=== PATIENT | male | born 1955 | race Caucasian/White ===

== ENCOUNTER → 2017-05-31 | Outpatient (CLI) | payer BC ==
[~2017-05-31] MED LIST: LISI40TA PO; NAPR1TAB9 PO; ZINC1CAP PO
[2017-05-31 13:06] LABS: BLOOD UREA NITROGEN 14 mg/dl (7-18); BUN/CREATININE RATIO 14.6 (10-20); CARBON DIOXIDE 26 mmol/L (21-32); CHLORIDE 105 mmol/L (98-107); CHOLESTEROL 197 mg/dl (0-200); CREATININE 0.95 mg/dl (0.60-1.40); GLUCOSE 113 mg/dl (70-99); POTASSIUM 3.9 mmol/L (3.5-5.1); SODIUM 140 mmol/L (136-145)
[2017-05-31 13:08] LABS: CHOLESTEROL/HDL RATIO 2.1; HDL CHOLESTEROL 95 mg/dl; LDL CHOLESTEROL CALCULATED 94 mg/dl; TRIGLYCERIDES 40 mg/dl (0-150); VERY LOW DENSITY LIPOPROT CALC 8 mg/dl
== END | disposition home or self-care (01) ==
LOC: C.LABPVFM 08:49
PROVIDERS: ATTEND Nurse Practitioner
DX: E78.5 Hyperlipidemia, unspecified (principal); I10 Essential (primary) hypertension

== ENCOUNTER 2022-06-25 16:22 | Inpatient (IN) ==
[2022-06-25] MEDS ORDERED: ACETAMINOPHEN 500 MG TAB PO STA (16:44)
[2022-06-25] MEDS ORDERED: SODIUM CHLORIDE 0.9% 1000ML 1,000 ML IV SCH (16:45)
[2022-06-25] MEDS ORDERED: ALBUT/IPRATROP 3MG/0.5MG NEB 3 ML VIAL NEB STA (16:55)
[2022-06-25] MEDS ORDERED: methylPREDNISolone 125 MG/2 ML VIAL IV STA (16:55)
[2022-06-25 17:00] LABS: Basophils # (auto) 0.06 K/uL (0-0.2); Basophils % (auto) 0.3 %; Eosinophils # (auto) 0.11 K/uL (0-0.50); Eosinophils % (auto) 0.5 %; Hematocrit (blood only) 42.7 % (40.1-51.0); Hemoglobin 14.7 g/dl (14.0-18.0); Immature Granulocytes # (auto) 0.11 K/uL (0.00-0.02); Immature Granulocytes % (auto) 0.5 %; Lymphocytes # (auto) 1.57 K/uL (1.2-3.4); Lymphocytes % (auto) 6.7 %; Mean Corpuscular Hemoglobin 30.2 pg (25.0-34.0); Mean Corpuscular Hgb Conc 34.4 g/dL (32.0-36.0); Mean Corpuscular Volume 87.7 fL (80.0-100.0); Mean Platelet Volume 9.3 fL (9.4-12.4); Monocytes # (auto) 2.45 K/uL (0.24-0.82); Monocytes % (auto) 10.5 %; Neutrophils # (auto) 19.09 K/uL (1.4-6.5); Neutrophils % (auto) 81.5 %; Platelet Count 369 K/uL (130-400); RDW Standard Deviation 44.6 fL (36.4-46.3); Red Blood Count 4.87 M/uL (4.63-6.08); White Blood Count 23.39 K/ul (4.8-10.8)
--- NOTE | 2022-06-25 17:18 | XRay Report ---
XR chest 1V portable HISTORY: 67 years-old Male SOB acute cough with shortness of breath COMPARISON: Chest radiograph 10/27/2013 TECHNIQUE: AP view of the chest FINDINGS: Cardiac silhouette is normal in size. Atherosclerosis of the aorta. Right greater left hilar prominen ce. No pneumothorax or large pleural effusion. Mild reticular nodular densities of the left midlung a nd right lung base. Degenerative changes of the shoulders and spine. IMPRESSION: 1. Mild reticular nodular opacities of the left midlung and right lung base are suspicious for an inf ectious or inflammatory pneumonitis. 2. Bilateral hilar prominence may represent associated lymphadenopathy. Attention at follow-up recomm ended. ACT 112: Negative or not required by law. The above report was generated using voice recognition software. It may contain grammatical, syntax o r spelling errors. Electronically signed by: Bryant Frazier M.D. 06/25/2022 5:16 PM
[2022-06-25 17:29] LABS: Albumin Globulin Ratio 1.1 (0.9-2); Albumin Level 3.9 gm/dl (3.4-5.0); BUN Creatinine Ratio 17.5 (10-20); Bilirubin Direct 0.2 mg/dl (0-0.2); Bilirubin,Total 0.5 mg/dl (0.2-1.0); Calcium 9.4 mg/dl (8.5-10.1); Creatinine Clr Calc Pharmacy 80.1 ml/min; Est GFR (African American) 91.9 ml/min; Est GFR (Non-African American) 79.3 ml/min; Globulin 3.5 gm/dl (2.5-4.0); Magnesium 2.1 mg/dl (1.7-2.4); Potassium 3.1 mmol/L (3.5-5.1); Total Protein 7.4 gm/dl (6.0-8.3)
[2022-06-25 17:34] LABS: Troponin I High Sensitivity 32.1 pg/ml (0-20)
[2022-06-25 17:48] LABS: Base Excess VBG 6.9 mEq/L; HCO3 VBG 32 mmol/L; Oxygen Saturation VBG < 60.0 %; PCO2 VBG 46 mmHg (38-50); PO2 VBG 33 mmHg; pH VBG 7.45 (7.36-7.41)
[2022-06-25 18:23] LABS: Partial Thromboplastin Ratio 0.9; Partial Thromboplastin Time 24.3 Seconds (21.0-31.0); Prothrombin Time 10.4 Seconds (9.0-12.0)
[2022-06-25 19:21] LABS: Influenza A virus by PCR Negative (Neg); Influenza B virus by PCR Negative (Neg); RSV by PCR Negative (Neg); SARS CoV2 RNA(COVID-19)Cepheid NEGATIVE (Negative)
[2022-06-25] MEDS ORDERED: cefTRIAXone SODIUM 1,000 MG/50 ML BAG IV STA ×2 (19:36→20:57)
[2022-06-25] MEDS ORDERED: AZITHROMYCIN 250 MG TAB PO ONE (19:36)
--- NOTE | 2022-06-25 19:56 | History & Physical Report ---
Date of Service June 25, 2022 Assessment & Plan (1) Hypertension: (2) Hyperlipidemia: (3) Tachycardia: (4) Sepsis: (5) Community acquired pneumonia: (6) Hypokalemia: (7) Elevated troponin: Plan Micha is a 67 year old male with history of hypertension, hyperlipidemia, and ta chycardia who presents for an acute illness and was admitted to the hospital for sepsis a/w pneumonia. Sepsis a/w Community Acquired Pneumonia - Symptoms started Saturday 06/23 a/w cough, rhinorrhea, and congestion - COVID, Flu, and RSV negative - SIRS 3/4 + Source (Pneumonia) = Sepsis - Blood culture pending - Received 1L bolus in ED, 1g Ceftriaxone, and 500 mg Azithromycin - Added additional 1g of Ceftriaxone in ED - MRSA nares pending - CRP 24.58 H, procalcitonin negative - Anaerobic coverage not indicated at present d/t low aspiration risk - Rx Ceftriaxone 2 g daily and Azithromycin 500 mg IV daily - Rx Duoneb q2h PRN and Solu-Medrol 40 mg IV q8h scheduled - Rx Mucinex 1200 mg BID - Consider CT chest if unfavorable response to antibiotics to evaluate for endobronchial lesion - Encouraged tobacco cessation, continue Elevated Troponin - HS Troponin 32.1 on presentation, trend - Repeat Troponin ordered - No active chest pain - EKG PRN for chest pain - Admitted to Med/tele Hypokalemia - K 3.1 on admission - Ordered 40 mEq PO at 2100, repeat at 2300 - Recheck CMP in AM Hypertension - Elevated on presentation w/o chest pain, headaches, or visual change - Continue home medications (Amlodipine, HCTZ, and Lisinopril) - Continue daily Aspirin 81 mg Hyperlipidemia - ASCVD Risk: 24.5%, recommending mod-high intensity statin - Patient not currently on statin therapy - Recommending consideration for discharge with statin FEN: NSS 1L bolus in ER, replete K 40 mEq PO now, 40 mEq PO before bed 06/25 Code status: Full Code DVT ppx: SCD Isolation: None Dispo:Admit to Med/Tele History of Present Illness Chief Complaint: Illness/Shortness of Breath Primary Care Provider: RAMA Martínez Micha is a 67 year old male with history of hypertension, hyperlipidemia, and tachycardia who presents for an acute illness and was admitted to the hospital for sepsis a/w pneumonia. ED Course: NS Bolus 1000 mL, Acetaminophen, Ceftriaxone 1 g, Azithromycin 500 mg Micha notes that on Saturday 06/23 he developed a cough, rhinorrhea, and shortness of breath. Patient notes that his cough was productive of green sputum since Saturday. At first, he believed he had a cold so he started taking Mucinex. Ultimately, he was unable to get ahead of his shortness of breath and his symptoms progressed over the weekend, to the point that his made him come into the ER today. Patient experienced associated body aches and chills, but did not note a fever at home. He states that his sinues became congested and he began having aching in his upper jaw and ears (which has since resolved). He denies any chest pain or pleuritic pain. Patient is not experiencing any abdominal pain, nausea, or emesis. He has had no bowel/bladder changes and has not experienced any lower extremity swelling. Patient notes no known history of lung disease (wheezing/COPD/asthma) and does not require oxygen or inhalers at baseline. He endorses smoking 1 PPD for 50 years. He has no dyspnea on a normal day. Patient denies any episodes of emesis or choking. He has had no difficulty swallowing and believes aspiration is low likelihood. Tachycardia was present at patient's last PCP appointment in April, labs ordered at this visit were unremarkable per patient (notably normal TSH in chart). Chronic conditions: Reviewed Medications: Reviewed Allergies: NKDA Allergies Allergy/AdvReac Type Severity Reaction Status Date / Time No Known Allergies Allergy Unverified 06/25/22 21:08 Home Medications Medication Instructions Recorded Confirmed Type aspirin 81 mg tablet,delayed 81 mg PO DAILY #30 tabs 04/22/19 06/25/22 Rx release naproxen sodium 220 mg capsule 220 mg PO BID #60 caps 04/22/19 06/25/22 Rx (Aleve) zinc sulfate 66 mg tablet 66 mg PO DAILY PRN Unknown 04/28/19 06/25/22 History amlodipine 10 mg tablet 10 mg PO DAILY #90 tabs 08/15/21 06/25/22 Rx hydrochlorothiazide 25 mg tablet 25 mg PO DAILY #90 tabs 08/15/21 06/25/22 Rx lisinopril 40 mg tablet 40 mg PO DAILY #90 tabs 08/15/21 06/25/22 Rx Past Med/Surg History Medical History Candidate for statin therapy due to risk of future cardiovascular event Hyperlipidemia Hypertension Surgical History No pertinent past surgical history Family History Sister Diabetes Grandfather Myocardial infarction Denies family history of Ovarian cancer Prostate cancer Breast cancer Colorectal cancer Stroke Social History Smoking Status: Heavy tobacco smoker Age Started Using Tobacco: 15; packs per day: 1; Cigarettes Per Day: Pack per day; Second Hand Exposure: No; Do You Dip or Chew Tobacco: Yes; Tobacco Cessation Education Requested by Patient: No Hx Alcohol Use: Yes Alcohol type: beer Alcohol Intake Frequency: 4 or More x per/Week Alcohol Intake Frequency Comment: daily Hx Substance Use: No Preferred Language: Portuguese Communication Ability: Effective Hearing Ability: Normal Registered Nurse Behavioral Health Required: No Beliefs That Will Affect Care: None marital status: Current Living Situation: Spouse Current Living Situation Comment: Home with current occupational status: retired current occupation: [employer] How many Children do You have: 2 Other Information That Helps Us Care for You: No Feels Safe at Home: Yes Safety Concerns: Feels Safe At This Time Childhood Exposure to Second-Hand Smoke: Yes caffeine: Yes (coffee) Dental Care, Regularly: Yes Physical Activity Frequency: Daily Seatbelt Use: sometimes Sunscreen Use: No Assistive Devices: None Review of Systems Review of Systems: As per HPI Physical Exam Physical Exam: Gen: Dyspnea w/ conversation, interactive, alert HEENT: Supple, no LAD, no thyromegaly, no JVD Resp:Labored, bilateral inspiratory and expiratory wheezing, rhonchi in left mid-lower lob and rhonchi in right lower lobe CV:RRR, normal S1/S2, no M/R/G Abd: Soft, non-distended, no TTP, normoactive bowels, no masses Extr: 2+ dp bilaterally, no edema Skin: No rashes lesions or erythema Oxygen saturation dropped to 70% upon transition from laying to sitting at 90 degrees, despite 3L O2 via NC Results & Data Results & Data ([facility]) Vital Signs (Past 12 Hours) Vital Signs Temp Pulse Resp BP Pulse Ox O2 Del Method O2 Flow Rate 06/25/22 16:44 28 H 93 Nasal Cannula 3 06/25/22 18:12 152/88 H 06/25/22 18:12 109 H 22 97 06/25/22 18:10 112 H 29 H 98 06/25/22 18:00 112 H 27 H 92 06/25/22 17:50 113 H 38 H 91 06/25/22 17:40 110 H 38 H 168/89 H 06/25/22 17:30 112 H 37 H 06/25/22 17:20 117 H 38 H 92 06/25/22 17:10 115 H 36 H 93 06/25/22 17:00 118 H 38 H 92 06/25/22 16:50 114 H 30 H 95 06/25/22 16:40 120 H 39 H 11/21/22 16:38 120 H 31 H 92 06/25/22 16:33 Room Air 06/25/22 16:33 85 L Nasal Cannula 0 06/25/22 16:33 37.6 C H 116 H 38 H 169/85 H 85 L Room Air Code Status & VTE Plan Code Status Full Code Supervising Physician Co-Signing Physician Notes Attending addendum: I have physically seen this patient, have supervised the medical residents activities, and agree with the H&P unless as otherwise noted. Assessment and Plan: Sepsis due to community-acquired pneumonia- Given Solu-Medrol 125 mg IV, ceftriaxone 1 g IV and azithromycin 5 mg p.o. in the ED Methylprednisolone 40 mg IV every 8 hours Ceftriaxone 2 g IV daily Azithromycin 500 mg IV daily Duonebs every 4 hours while awake and every 2 hours when necessary. MRSA nares ordered and pending Based on Infection location and history of tobacco use, if does not improve at sufficient interval, would order CT scan of the chest to assess for possible postobstructive process Elevated troponin- Telemetry admission Troponin mildly elevated at 32.1 Likely type II, supply demand mismatch Hypokalemia- potassium 3.1 on admission replace both orally and IV, and recheck laboratories in a.m. Likely secondary to HCTZ If does not normalize in a.m., would hold HCTZ Otherwise continue amlodipine, HCTZ and lisinopril Remaining orders and notations as noted Resident Activity Tracking Resident Involvement: Resident Care Provided Care Provided: Adult Hospital Medicine
[2022-06-25] MEDS ORDERED: POTASSIUM CHLORIDE CRTAB 20 MEQ TABCR PO STA (20:57)
[2022-06-25] MEDS ORDERED: ACETAMINOPHEN 325 MG TAB PO PRN (21:25)
[2022-06-25] MEDS ORDERED: ALBUT/IPRATROP 3MG/0.5MG NEB 3 ML VIAL NEB PRN (21:37)
--- NOTE | 2022-06-25 22:18 | Emergency Department Note ---
History of Present Illness General Chief Complaint: Illness Stated Complaint: Shortness of Breath Time Seen by Provider: 06/25/22 16:44 History of Present Illness Provider Complaint: shortness of breath and cough Onset (ago): day(s) (2) Severity: moderate Consistency/Duration: + progressively worsening Relieved By: + nothing Exacerbated By: + exertion and + coughing Known history of: COPD Associated symptoms: + fever, + cough, + wheezing, + sputum production and + chest congestion; no hemoptysis, no diaphoresis, no nausea/vomiting, no syncope, no abdominal pain or no rash Home Medications Medication Instructions Recorded Confirmed Type aspirin 81 mg tablet,delayed 81 mg PO DAILY #30 tabs 04/22/19 06/25/22 Rx release naproxen sodium 220 mg capsule 220 mg PO BID #60 caps 04/22/19 06/25/22 Rx (Aleve) zinc sulfate 66 mg tablet 66 mg PO DAILY PRN Unknown 04/28/19 06/25/22 History amlodipine 10 mg tablet 10 mg PO DAILY #90 tabs 08/15/21 06/25/22 Rx hydrochlorothiazide 25 mg tablet 25 mg PO DAILY #90 tabs 08/15/21 06/25/22 Rx lisinopril 40 mg tablet 40 mg PO DAILY #90 tabs 08/15/21 06/25/22 Rx Allergies Allergy/AdvReac Type Severity Reaction Status Date / Time No Known Allergies Allergy Unverified 06/25/22 21:08 Past Med/Surg History Medical History Candidate for statin therapy due to risk of future cardiovascular event Hyperlipidemia Hypertension Surgical History No pertinent past surgical history Family History Sister Diabetes Grandfather Myocardial infarction Denies family history of Ovarian cancer Prostate cancer Breast cancer Colorectal cancer Stroke Social History Smoking Status: Former smoker Age Started Using Tobacco: 15; packs per day: 1; Second Hand Exposure: No; Hx Alcohol Use: Yes Alcohol type: beer Alcohol Intake Frequency: 4 or More x per/Week Alcohol Intake Frequency Comment: daily Hx Substance Use: No Preferred Language: [place]an Communication Ability: Effective Hearing Ability: Normal Airline Managerial Supervisor Required: No marital status: Current Living Situation: Spouse 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 How many Children do You have: 2 Feels Safe at Home: Yes Childhood Exposure to Second-Hand Smoke: Yes caffeine: Yes (coffee) Dental Care, Regularly: Yes Physical Activity Frequency: Daily Seatbelt Use: sometimes Sunscreen Use: No Review of Systems A total of 10 systems reviewed and were otherwise negative Physical Exam Vital Signs: Vital Signs - 24 hr 06/25/22 16:33 06/25/22 16:33 06/25/22 16:33 Temperature 37.6 C H Temperature Source Oral Pulse Rate 116 H Pulse Rate from Sp O2 Sensor Respiratory Rate 38 H Respiratory Effort / Characteristics Blood Pressure 169/85 H Blood Pressure [place] n 113 Blood Pressure Pos ition Sitting Pulse Oximetry 85 L 85 L Oxygen Delivery Me thod Room Air Nasal Cannula Room Air Oxygen Flow Rate 0 Sepsis Recent Feve r Within 48 Hours No Sepsis New/Unexpla ined Change in Men ned Status No Sepsis Action Take n by Nursing Physician Notified Oxygen Flow Rate - Titration 2 Pulse Oximetry Pos t Tiitration 92 06/25/22 16:33 06/25/22 16:38 06/25/22 16:40 Temperature Temperature Source Oral Pulse Rate 120 H 120 H Pulse Rate from Sp O2 Sensor 119 H Respiratory Rate 31 H 39 H Respiratory Effort / Characteristics Blood Pressure Blood Pressure [place] n Blood Pressure Pos ition Pulse Oximetry 92 Oxygen Delivery Me thod Oxygen Flow Rate Sepsis Recent Feve r Within 48 Hours Sepsis New/Unexpla ined Change in Men ned Status Sepsis Action Take n by Nursing Oxygen Flow Rate - Titration Pulse Oximetry Pos t Tiitration 06/25/22 16:50 06/25/22 17:00 06/25/22 17:10 Temperature Temperature Source Pulse Rate 114 H 118 H 115 H Pulse Rate from Sp O2 Sensor 116 H 117 H 116 H Respiratory Rate 30 H 38 H 36 H Respiratory Effort / Characteristics Blood Pressure Blood Pressure [place] n Blood Pressure Pos ition Pulse Oximetry 95 92 93 Oxygen Delivery Me thod Oxygen Flow Rate Sepsis Recent Feve r Within 48 Hours Sepsis New/Unexpla ined Change in Men ned Status Sepsis Action Take n by Nursing Oxygen Flow Rate - Titration Pulse Oximetry Pos t Tiitration 06/25/22 17:20 06/25/22 17:30 06/25/22 17:40 Temperature Temperature Source Pulse Rate 117 H 112 H 110 H Pulse Rate from Sp O2 Sensor 115 H Respiratory Rate 38 H 37 H 38 H Respiratory Effort / Characteristics Blood Pressure 168/89 H Blood Pressure [place] n 115 Blood Pressure Pos ition Pulse Oximetry 92 Oxygen Delivery Me thod Oxygen Flow Rate Sepsis Recent Feve r Within 48 Hours Sepsis New/Unexpla ined Change in Men ned Status Sepsis Action Take n by Nursing Oxygen Flow Rate - Titration Pulse Oximetry Pos t Tiitration 06/25/22 17:50 06/25/22 18:00 06/25/22 18:10 Temperature Temperature Source Pulse Rate 113 H 112 H 112 H Pulse Rate from Sp O2 Sensor 113 H 114 H 112 H Respiratory Rate 38 H 27 H 29 H Respiratory Effort / Characteristics Blood Pressure Blood Pressure [place] n Blood Pressure Pos ition Pulse Oximetry 91 92 98 Oxygen Delivery Me thod Oxygen Flow Rate Sepsis Recent Feve r Within 48 Hours Sepsis New/Unexpla ined Change in Men ned Status Sepsis Action Take n by Nursing Oxygen Flow Rate - Titration Pulse Oximetry Pos t Tiitration 06/25/22 18:12 06/25/22 18:12 06/25/22 16:44 Temperature Temperature Source Pulse Rate 109 H Pulse Rate from Sp O2 Sensor 106 H Respiratory Rate 22 28 H Respiratory Effort / Characteristics Spontaneous Labore d Blood Pressure 152/88 H Blood Pressure [place] n 109 Blood Pressure Pos ition Pulse Oximetry 97 93 Oxygen Delivery Me thod Nasal Cannula Oxygen Flow Rate 3 Sepsis Recent Feve r Within 48 Hours Sepsis New/Unexpla ined Change in Men ned Status Sepsis Action Take n by Nursing Oxygen Flow Rate - Titration Pulse Oximetry Pos t Tiitration 06/25/22 20:18 06/25/22 18:15 06/25/22 18:15 Temperature 36.8 C Temperature Source Oral Pulse Rate 111 H Pulse Rate from Sp O2 Sensor 113 H Respiratory Rate 27 H Respiratory Effort / Characteristics Blood Pressure 148/86 H Blood Pressure [place] n 106 Blood Pressure Pos ition Pulse Oximetry 96 Oxygen Delivery Me thod Oxygen Flow Rate Sepsis Recent Feve r Within 48 Hours Sepsis New/Unexpla ined Change in Men ned Status Sepsis Action Take n by Nursing Oxygen Flow Rate - Titration Pulse Oximetry Pos t Tiitration 06/25/22 18:20 06/25/22 18:30 06/25/22 18:30 Temperature Temperature Source Pulse Rate 113 H 109 H Pulse Rate from Sp O2 Sensor 112 H 109 H Respiratory Rate 33 H 35 H Respiratory Effort / Characteristics Blood Pressure 150/82 H Blood Pressure [place] n 104 Blood Pressure Pos ition Pulse Oximetry 93 93 Oxygen Delivery Me thod Oxygen Flow Rate Sepsis Recent Feve r Within 48 Hours Sepsis New/Unexpla ined Change in Men ned Status Sepsis Action Take n by Nursing Oxygen Flow Rate - Titration Pulse Oximetry Pos t Tiitration 06/25/22 18:43 06/25/22 18:45 06/25/22 18:45 Temperature Temperature Source Pulse Rate 111 H 111 H Pulse Rate from Sp O2 Sensor 107 H 110 H Respiratory Rate 34 H 32 H Respiratory Effort / Characteristics Blood Pressure 148/77 H Blood Pressure [place] n 100 Blood Pressure Pos ition Pulse Oximetry 93 92 Oxygen Delivery Me thod Oxygen Flow Rate Sepsis Recent Feve r Within 48 Hours Sepsis New/Unexpla ined Change in Men ned Status Sepsis Action Take n by Nursing Oxygen Flow Rate - Titration Pulse Oximetry Pos t Tiitration 06/25/22 18:50 06/25/22 19:00 06/25/22 19:00 Temperature Temperature Source Pulse Rate 109 H 102 H Pulse Rate from Sp O2 Sensor 108 H 103 H Respiratory Rate 31 H 40 H Respiratory Effort / Characteristics Blood Pressure 151/78 H Blood Pressure [place] n 102 Blood Pressure Pos ition Pulse Oximetry 93 93 Oxygen Delivery Me thod Oxygen Flow Rate Sepsis Recent Feve r Within 48 Hours Sepsis New/Unexpla ined Change in Men ned Status Sepsis Action Take n by Nursing Oxygen Flow Rate - Titration Pulse Oximetry Pos t Tiitration 06/25/22 19:10 06/25/22 19:15 06/25/22 19:15 Temperature Temperature Source Pulse Rate 105 H 106 H Pulse Rate from Sp O2 Sensor 105 H 104 H Respiratory Rate 36 H 33 H Respiratory Effort / Characteristics Blood Pressure 141/73 H Blood Pressure [place] n 95 Blood Pressure Pos ition Pulse Oximetry 93 92 Oxygen Delivery Me thod Oxygen Flow Rate Sepsis Recent Feve r Within 48 Hours Sepsis New/Unexpla ined Change in Men ned Status Sepsis Action Take n by Nursing Oxygen Flow Rate - Titration Pulse Oximetry Pos t Tiitration 06/25/22 19:20 06/25/22 19:30 06/25/22 19:30 Temperature Temperature Source Pulse Rate 117 H 109 H Pulse Rate from Sp O2 Sensor 114 H 109 H Respiratory Rate 22 31 H Respiratory Effort / Characteristics Blood Pressure 155/91 H Blood Pressure [place] n 112 Blood Pressure Pos ition Pulse Oximetry 92 91 Oxygen Delivery Me thod Oxygen Flow Rate Sepsis Recent Feve r Within 48 Hours Sepsis New/Unexpla ined Change in Men ned Status Sepsis Action Take n by Nursing Oxygen Flow Rate - Titration Pulse Oximetry Pos t Tiitration 06/25/22 19:40 06/25/22 19:45 06/25/22 19:45 Temperature Temperature Source Pulse Rate 103 H 100 H Pulse Rate from Sp O2 Sensor 103 H 99 H Respiratory Rate 34 H 35 H Respiratory Effort / Characteristics Blood Pressure 141/75 H Blood Pressure [place] n 97 Blood Pressure Pos ition Pulse Oximetry 92 93 Oxygen Delivery Me thod Oxygen Flow Rate Sepsis Recent Feve r Within 48 Hours Sepsis New/Unexpla ined Change in Men ned Status Sepsis Action Take n by Nursing Oxygen Flow Rate - Titration Pulse Oximetry Pos t Tiitration 06/25/22 19:50 06/25/22 20:00 06/25/22 20:00 Temperature Temperature Source Pulse Rate 106 H 98 H Pulse Rate from Sp O2 Sensor 105 H 99 H Respiratory Rate 27 H 32 H Respiratory Effort / Characteristics Blood Pressure 151/78 H Blood Pressure [place] n 102 Blood Pressure Pos ition Pulse Oximetry 92 93 Oxygen Delivery Me thod Oxygen Flow Rate Sepsis Recent Feve r Within 48 Hours Sepsis New/Unexpla ined Change in Men ned Status Sepsis Action Take n by Nursing Oxygen Flow Rate - Titration Pulse Oximetry Pos t Tiitration 06/25/22 20:10 06/25/22 20:15 06/25/22 20:15 Temperature Temperature Source Pulse Rate 97 H 95 H Pulse Rate from Sp O2 Sensor 97 H 94 H Respiratory Rate 28 H 31 H Respiratory Effort / Characteristics Blood Pressure 138/77 Blood Pressure [place] n 97 Blood Pressure Pos ition Pulse Oximetry 92 92 Oxygen Delivery Me thod Oxygen Flow Rate Sepsis Recent Feve r Within 48 Hours Sepsis New/Unexpla ined Change in Men ned Status Sepsis Action Take n by Nursing Oxygen Flow Rate - Titration Pulse Oximetry Pos t Tiitration 06/25/22 20:20 06/25/22 20:30 06/25/22 20:30 Temperature Temperature Source Pulse Rate 97 H 95 H Pulse Rate from Sp O2 Sensor 98 H 95 H Respiratory Rate 34 H 37 H Respiratory Effort / Characteristics Blood Pressure 142/74 H Blood Pressure [place] n 96 Blood Pressure Pos ition Pulse Oximetry 92 94 Oxygen Delivery Me thod Oxygen Flow Rate Sepsis Recent Feve r Within 48 Hours Sepsis New/Unexpla ined Change in Men ned Status Sepsis Action Take n by Nursing Oxygen Flow Rate - Titration Pulse Oximetry Pos t Tiitration 06/25/22 21:04 06/25/22 21:40 06/25/22 21:45 Temperature Temperature Source Pulse Rate 91 H 100 H 89 Pulse Rate from Sp O2 Sensor 92 H 101 H 90 Respiratory Rate 37 H 27 H 37 H Respiratory Effort / Characteristics Blood Pressure Blood Pressure [place] n Blood Pressure Pos ition Pulse Oximetry 92 95 94 Oxygen Delivery Me thod Oxygen Flow Rate Sepsis Recent Feve r Within 48 Hours Sepsis New/Unexpla ined Change in Men ned Status Sepsis Action Take n by Nursing Oxygen Flow Rate - Titration Pulse Oximetry Pos t Tiitration 06/25/22 21:45 06/25/22 21:50 06/25/22 22:00 Temperature Temperature Source Pulse Rate 90 Pulse Rate from Sp O2 Sensor 90 Respiratory Rate 37 H Respiratory Effort / Characteristics Blood Pressure 141/80 H 148/85 H Blood Pressure [place] n 100 106 Blood Pressure Pos ition Pulse Oximetry 95 Oxygen Delivery Me thod Oxygen Flow Rate Sepsis Recent Feve r Within 48 Hours Sepsis New/Unexpla ined Change in Men ned Status Sepsis Action Take n by Nursing Oxygen Flow Rate - Titration Pulse Oximetry Pos t Tiitration 06/25/22 22:00 06/25/22 22:10 Temperature Temperature Source Pulse Rate 88 100 H Pulse Rate from Sp O2 Sensor 90 99 H Respiratory Rate 30 H 33 H Respiratory Effort / Characteristics Blood Pressure Blood Pressure [place] n Blood Pressure Pos ition Pulse Oximetry 93 93 Oxygen Delivery Me thod Oxygen Flow Rate Sepsis Recent Feve r Within 48 Hours Sepsis New/Unexpla ined Change in Men ned Status Sepsis Action Take n by Nursing Oxygen Flow Rate - Titration Pulse Oximetry Pos t Tiitration Physical Exam: Physical Exam GENERAL: He is oriented to person, place, and time. He appears well-developed and well-nourished. He does not appear distressed. HENT: Exam performed. - Head: Normocephalic and atraumatic. - Right Ear: External ear normal. No mastoid tenderness. - Left Ear: External ear normal. No mastoid tenderness. - Mouth/Throat: The oropharynx is clear and moist. No trismus in the jaw. No dental abscesses or uvula swelling. No oropharyngeal exudate or tonsillar abscesses. EYES: Conjunctivae and EOM are normal. Pupils are equal, round, and reactive to light. Right eye exhibits no discharge. Left eye exhibits no discharge. No scleral icterus. NECK: Normal range of motion. Neck supple. No JVD present. No spinous process tenderness present. No carotid bruit present. No rigidity. No tracheal deviation and normal range of motion present. No Brudzinski's sign and no Kernig's sign noted. CV: Normal rate, regular rhythm, normal heart sounds and intact distal pulses. There is no peripheral edema. Palpable radial pulses bue. PULM/CHEST: Rhonchi and expiratory wheezes bilaterally. - Chest Wall: He exhibits no tenderness. ABD: The abdomen is soft. Bowel sounds are normal. He has no distension. No mass is present. There is no tenderness. There is no rebound, no guarding, no Blair's sign and no tenderness at McBurney's point. Rovsig negative. MUSC/SKEL: Normal range of motion. There is no peripheral edema, tenderness or deformity. LYMPH: No cervical adenopathy. NEURO: He is alert and oriented to person, place, and time. He has normal strength. No cranial nerve deficit or sensory deficit. Coordination and gait normal. GCS eye subscore is 4. GCS verbal subscore is 5. GCS motor subscore is 6. Cerebellar tests wnl. SKIN: Skin is warm and dry. He is not diaphoretic. PSYCH: He has a normal mood and affect. Behavior is normal. Judgment and thought content normal. Course Course 164: The patient was evaluated in room C10. A complete history and physical exam was performed Cardiac monitoring: An order was placed for continuous cardiac monitoring. The monitor shows a rate of 110 with sinus rhythm Patient found to be hypoxic tachycardic and febrile. Patient placed on supplemental oxygen which improved his oxygen saturation. Sepsis protocols initiated. 1930: Vital signs stable on supplemental oxygen via nasal cannula. Patient states he feels better after receiving IV steroids and DuoNeb as well as IV fluids and antipyretic. Labs show leukocytosis 23.39 lactic acid within normal limits. VBG within normal limits. Troponin elevated at 32.1. Patient negative for COVID influenza and RSV. Chest x-ray shows bilateral infiltrates. Patient be treated for community-acquired pneumonia with Rocephin and azithromycin. Patient will be admitted to [facility] team Dr. Shah team notified. Administered Medications Methylprednisolone (Methylprednisolone 40 Mg/Ml Vial) 40 mg IV Q8H YASMANY Stop: 07/25/22 21:44 Last Admin: 06/25/22 21:45 Dose: 40 mg Documented By: [id number] Discontinued Medications Acetaminophen (Acetaminophen 500 Mg Tab) 1,000 mg PO NOW STA Stop: 06/25/22 16:45 Last Admin: 06/25/22 17:24 Dose: 1,000 mg Documented By: [id number] Albuterol (Albut/Ipratrop 3mg/0.5mg Neb 3 Ml Vial) 3 ml NEB NOW STA; Protocol Stop: 06/25/22 16:56 Last Admin: 06/25/22 17:24 Dose: 3 ml Documented By: [id number] Azithromycin (Azithromycin 250 Mg Tab) 500 mg PO NOW ONE Stop: 06/25/22 19:37 Last Admin: 06/25/22 20:02 Dose: 500 mg Documented By: [id number] Sodium Chloride (Nss 1000ml) 1,000 mls @ 999 mls/hr IV .[id number] YASMANY Stop: 06/25/22 17:45 Last Infusion: 06/25/22 19:35 Dose: 0 mls/hr Documented By: [id number] Admin: 06/25/22 17:24 Dose: 999 mls/hr Documented By: [id number] Ceftriaxone Sodium (Rocephin) 1,000 mg in 50 mls @ 100 mls/hr IV NOW STA Stop: 06/25/22 20:05 Last Infusion: 06/25/22 21:14 Dose: 0 mls/hr Documented By: [id number] Admin: 06/25/22 20:15 Dose: 100 mls/hr Documented By: [id number] Ceftriaxone Sodium (Rocephin) 1,000 mg in 50 mls @ 100 mls/hr IV NOW STA Stop: 06/25/22 21:26 Last Admin: 06/25/22 21:14 Dose: 100 mls/hr Documented By: [id number] Methylprednisolone (Methylprednisolone 125 Mg/2 Ml Vial) 125 mg IV NOW STA Stop: 06/25/22 16:56 Last Admin: 06/25/22 17:25 Dose: 125 mg Documented By: [id number] Potassium Chloride (Potassium Chloride Crtab 20 Meq Tabcr) 40 meq PO NOW STA Stop: 06/25/22 20:58 Last Admin: 06/25/22 21:14 Dose: 40 meq Documented By: [id number] Medical Decision Making Laboratory Data Result diagrams: 06/25/22 16:45 06/25/22 16:45 Lab Results 06/25/22 06/25/22 06/25/22 Range/Units 16:45 16:45 16:45 WBC 23.39 H (4.8-10.8) K/ul RBC 4.87 (4.63-6.08) M/uL Hgb 14.7 (14.0-18.0) g/dl Hct 42.7 (40.1-51.0) % MCV 87.7 (80.0-100.0) fL MCH 30.2 (25.0-34.0) pg MCHC 34.4 (32.0-36.0) g/dL RDW Std Deviation 44.6 (36.4-46.3) fL RDW Coeff of Atilio 14.0 (11.5-14.5) % Plt Count 369 (130-400) K/uL MPV 9.3 L (9.4-12.4) fL Immature Gran % (Auto) 0.5 % Neut % (Auto) 81.5 % Lymph % (Auto) 6.7 % [place] % (Auto) 10.5 % Eos % (Auto) 0.5 % Baso % (Auto) 0.3 % Neut # (Auto) 19.09 H (1.4-6.5) K/uL Lymph # (Auto) 1.57 (1.2-3.4) K/uL [place] # (Auto) 2.45 H (0.24-0.82) K/uL Eos # (Auto) 0.11 (0-0.50) K/uL Baso # (Auto) 0.06 (0-0.2) K/uL Immature Gran # (Auto) 0.11 H (0.00-0.02) K/uL PT Cancelled INR Cancelled APTT Cancelled PTT Ratio Cancelled VBG pH (7.36-7.41) VBG pCO2 (38-50) mmHg VBG pO2 mmHg VBG HCO3 mmol/L VBG O2 Saturation % VBG Base Excess mEq/L Sodium 135 L (136-145) mmol/L Potassium 3.1 L (3.5-5.1) mmol/L Chloride 96 L (98-107) mmol/L Carbon Dioxide 29 (21-32) mmol/L Anion Gap 10 (3-11) BUN 17 (6-23) mg/dl Creatinine 0.97 (0.6-1.4) mg/dl Est Cr Clr Drug Dosing 80.1 ml/min Est GFR ( Amer) 91.9 ml/min Est GFR (Non-Af Amer) 79.3 ml/min BUN/Creatinine Ratio 17.5 (10-20) Glucose 122 H (70-99(Fasting)) mg/dl Lactate (0.4-2.0) mmol/L Calcium 9.4 (8.5-10.1) mg/dl Magnesium 2.1 (1.7-2.4) mg/dl Total Bilirubin 0.5 (0.2-1.0) mg/dl Direct Bilirubin 0.2 (0-0.2) mg/dl AST 44 H (13-39) U/L ALT 35 (7-52) U/L Alkaline Phosphatase 83 (34-104) U/L Troponin I High Sens 32.1 H (0-20) pg/ml C-Reactive Protein (0-0.5) mg/dl Total Protein 7.4 (6.0-8.3) gm/dl Albumin 3.9 (3.4-5.0) gm/dl Globulin 3.5 (2.5-4.0) gm/dl Albumin/Globulin Ratio 1.1 (0.9-2) Procalcitonin (0-0.5) ng/ml Nasal Screen MRSA (PCR) (Negative) SARS-CoV-2 (PCR) (Negative) Influenza Type A (PCR) (Neg) Influenza Type B (PCR) (Neg) RSV (RT-PCR) (Neg) 06/25/22 06/25/22 06/25/22 Range/Units 16:45 16:45 17:38 WBC (4.8-10.8) K/ul RBC (4.63-6.08) M/uL Hgb (14.0-18.0) g/dl Hct (40.1-51.0) % MCV (80.0-100.0) fL MCH (25.0-34.0) pg MCHC (32.0-36.0) g/dL RDW Std Deviation (36.4-46.3) fL RDW Coeff of Atilio (11.5-14.5) % Plt Count (130-400) K/uL MPV (9.4-12.4) fL Immature Gran % (Auto) % Neut % (Auto) % Lymph % (Auto) % [place] % (Auto) % Eos % (Auto) % Baso % (Auto) % Neut # (Auto) (1.4-6.5) K/uL Lymph # (Auto) (1.2-3.4) K/uL [place] # (Auto) (0.24-0.82) K/uL Eos # (Auto) (0-0.50) K/uL Baso # (Auto) (0-0.2) K/uL Immature Gran # (Auto) (0.00-0.02) K/uL PT INR APTT PTT Ratio VBG pH (7.36-7.41) VBG pCO2 (38-50) mmHg VBG pO2 mmHg VBG HCO3 mmol/L VBG O2 Saturation % VBG Base Excess mEq/L Sodium (136-145) mmol/L Potassium (3.5-5.1) mmol/L Chloride (98-107) mmol/L Carbon Dioxide (21-32) mmol/L Anion Gap (3-11) BUN (6-23) mg/dl Creatinine (0.6-1.4) mg/dl Est Cr Clr Drug Dosing ml/min Est GFR ( Amer) ml/min Est GFR (Non-Af Amer) ml/min BUN/Creatinine Ratio (10-20) Glucose (70-99(Fasting)) mg/dl Lactate 1.2 (0.4-2.0) mmol/L Calcium (8.5-10.1) mg/dl Magnesium (1.7-2.4) mg/dl Total Bilirubin (0.2-1.0) mg/dl Direct Bilirubin (0-0.2) mg/dl AST (13-39) U/L ALT (7-52) U/L Alkaline Phosphatase (34-104) U/L Troponin I High Sens (0-20) pg/ml C-Reactive Protein 24.58 H (0-0.5) mg/dl Total Protein (6.0-8.3) gm/dl Albumin (3.4-5.0) gm/dl Globulin (2.5-4.0) gm/dl Albumin/Globulin Ratio (0.9-2) Procalcitonin 0.29 (0-0.5) ng/ml Nasal Screen MRSA (PCR) (Negative) SARS-CoV-2 (PCR) (Negative) Influenza Type A (PCR) (Neg) Influenza Type B (PCR) (Neg) RSV (RT-PCR) (Neg) 06/25/22 06/25/22 06/25/22 Range/Units 17:38 17:38 18:32 WBC (4.8-10.8) K/ul RBC (4.63-6.08) M/uL Hgb (14.0-18.0) g/dl Hct (40.1-51.0) % MCV (80.0-100.0) fL MCH (25.0-34.0) pg MCHC (32.0-36.0) g/dL RDW Std Deviation (36.4-46.3) fL RDW Coeff of Atilio (11.5-14.5) % Plt Count (130-400) K/uL MPV (9.4-12.4) fL Immature Gran % (Auto) % Neut % (Auto) % Lymph % (Auto) % [place] % (Auto) % Eos % (Auto) % Baso % (Auto) % Neut # (Auto) (1.4-6.5) K/uL Lymph # (Auto) (1.2-3.4) K/uL [place] # (Auto) (0.24-0.82) K/uL Eos # (Auto) (0-0.50) K/uL Baso # (Auto) (0-0.2) K/uL Immature Gran # (Auto) (0.00-0.02) K/uL PT 10.4 INR 1.0 APTT 24.3 PTT Ratio 0.9 VBG pH 7.45 H (7.36-7.41) VBG pCO2 46 (38-50) mmHg VBG pO2 33 mmHg VBG HCO3 32 mmol/L VBG O2 Saturation < 60.0 % VBG Base Excess 6.9 mEq/L Sodium (136-145) mmol/L Potassium (3.5-5.1) mmol/L Chloride (98-107) mmol/L Carbon Dioxide (21-32) mmol/L Anion Gap (3-11) BUN (6-23) mg/dl Creatinine (0.6-1.4) mg/dl Est Cr Clr Drug Dosing ml/min Est GFR ( Amer) ml/min Est GFR (Non-Af Amer) ml/min BUN/Creatinine Ratio (10-20) Glucose (70-99(Fasting)) mg/dl Lactate (0.4-2.0) mmol/L Calcium (8.5-10.1) mg/dl Magnesium (1.7-2.4) mg/dl Total Bilirubin (0.2-1.0) mg/dl Direct Bilirubin (0-0.2) mg/dl AST (13-39) U/L ALT (7-52) U/L Alkaline Phosphatase (34-104) U/L Troponin I High Sens (0-20) pg/ml C-Reactive Protein (0-0.5) mg/dl Total Protein (6.0-8.3) gm/dl Albumin (3.4-5.0) gm/dl Globulin (2.5-4.0) gm/dl Albumin/Globulin Ratio (0.9-2) Procalcitonin (0-0.5) ng/ml Nasal Screen MRSA (PCR) (Negative) SARS-CoV-2 (PCR) NEGATIVE (Negative) Influenza Type A (PCR) Negative (Neg) Influenza Type B (PCR) Negative (Neg) RSV (RT-PCR) Negative (Neg) 06/25/22 Range/Units 20:55 WBC (4.8-10.8) K/ul RBC (4.63-6.08) M/uL Hgb (14.0-18.0) g/dl Hct (40.1-51.0) % MCV (80.0-100.0) fL MCH (25.0-34.0) pg MCHC (32.0-36.0) g/dL RDW Std Deviation (36.4-46.3) fL RDW Coeff of Atilio (11.5-14.5) % Plt Count (130-400) K/uL MPV (9.4-12.4) fL Immature Gran % (Auto) % Neut % (Auto) % Lymph % (Auto) % [place] % (Auto) % Eos % (Auto) % Baso % (Auto) % Neut # (Auto) (1.4-6.5) K/uL Lymph # (Auto) (1.2-3.4) K/uL [place] # (Auto) (0.24-0.82) K/uL Eos # (Auto) (0-0.50) K/uL Baso # (Auto) (0-0.2) K/uL Immature Gran # (Auto) (0.00-0.02) K/uL PT INR APTT PTT Ratio VBG pH (7.36-7.41) VBG pCO2 (38-50) mmHg VBG pO2 mmHg VBG HCO3 mmol/L VBG O2 Saturation % VBG Base Excess mEq/L Sodium (136-145) mmol/L Potassium (3.5-5.1) mmol/L Chloride (98-107) mmol/L Carbon Dioxide (21-32) mmol/L Anion Gap (3-11) BUN (6-23) mg/dl Creatinine (0.6-1.4) mg/dl Est Cr Clr Drug Dosing ml/min Est GFR ( Amer) ml/min Est GFR (Non-Af Amer) ml/min BUN/Creatinine Ratio (10-20) Glucose (70-99(Fasting)) mg/dl Lactate (0.4-2.0) mmol/L Calcium (8.5-10.1) mg/dl Magnesium (1.7-2.4) mg/dl Total Bilirubin (0.2-1.0) mg/dl Direct Bilirubin (0-0.2) mg/dl AST (13-39) U/L ALT (7-52) U/L Alkaline Phosphatase (34-104) U/L Troponin I High Sens (0-20) pg/ml C-Reactive Protein (0-0.5) mg/dl Total Protein (6.0-8.3) gm/dl Albumin (3.4-5.0) gm/dl Globulin (2.5-4.0) gm/dl Albumin/Globulin Ratio (0.9-2) Procalcitonin (0-0.5) ng/ml Nasal Screen MRSA (PCR) Negative (Negative) SARS-CoV-2 (PCR) (Negative) Influenza Type A (PCR) (Neg) Influenza Type B (PCR) (Neg) RSV (RT-PCR) (Neg) Imaging Data Radiologist's Impression: Chest X-Ray 06/25/22 16:32 XR chest 1V portable HISTORY: 67 years-old Male SOB acute cough with shortness of breath COMPARISON: Chest radiograph 10/27/2013 TECHNIQUE: AP view of the chest FINDINGS: Cardiac silhouette is normal in size. Atherosclerosis of the aorta. Right greater left hilar prominence. No pneumothorax or large pleural effusion. Mild reticular nodular densities of the left midlung and right lung base. Degenerative changes of the shoulders and spine. IMPRESSION: 1. Mild reticular nodular opacities of the left midlung and right lung base are suspicious for an infectious or inflammatory pneumonitis. 2. Bilateral hilar prominence may represent associated lymphadenopathy. Attentio n at follow-up recommended. ACT 112: Negative or not required by law. The above report was generated using voice recognition software. It may contain grammatical, syntax or spelling errors. Electronically signed by: Bryant Frazier M.D. 06/25/2022 5:16 PM [facility] Narrative 1644: The patient was evaluated in room C10. A complete history and physical exam was performed Cardiac monitoring: An order was placed for continuous cardiac monitoring. The monitor shows a rate of 110 with sinus rhythm Patient found to be hypoxic tachycardic and febrile. Patient placed on supplemental oxygen which improved his oxygen saturation. Sepsis protocols initiated. 0: Vital signs stable on supplemental oxygen via nasal cannula. Patient states he feels better after receiving IV steroids and DuoNeb as well as IV fluids and antipyretic. Labs show leukocytosis 23.39 lactic acid within normal limits. VBG within normal limits. Troponin elevated at 32.1. Patient negative for COVID influenza and RSV. Chest x-ray shows bilateral infiltrates. Patient be treated for community-acquired pneumonia with Rocephin and azithromycin. P atient will be admitted to [facility]ist team Dr. Shah team notified. Impression & Plan Hypoxia, Community acquired pneumonia, Elevated troponin Critical Care Time Critical Care Time: Yes Total Critical Care Time: 69 I have personally spent greater than 69 minutes of critical care time in the direct management of this patient. This includes bedside care, interpretation of diagnostic studies, and testing, discussion with consultants, patient, and family members, and other required patient management activities. This 69 min utes is in excess of all separately billable procedures. Discharge Plan Visit Data Chief Complaint: Illness Stated Complaint: Shortness of Breath ED Provider: Medhat Bush Discharge Problem: Hypoxia, Community acquired pneumonia, Elevated troponin Patient Disposition: Admitted As Inpatient Forms Stand Alone Forms: [facility] Prescriptions Prescriptions: No Action naproxen sodium [Aleve] 220 mg capsule 220 mg PO BID Qty: 60 2RF aspirin 81 mg tablet,delayed release (DR/EC) 81 mg PO DAILY Qty: 30 2RF amlodipine 10 mg tablet 10 mg PO DAILY Qty: 90 3RF hydrochlorothiazide 25 mg tablet 25 mg PO DAILY Qty: 90 3RF lisinopril 40 mg tablet 40 mg PO DAILY Qty: 90 3RF zinc sulfate 66 mg tablet 66 mg PO DAILY PRN (Reason: Unknown) Referrals Referrals: Anna Marie Gan CRNP [Primary Care Provider] -
[2022-06-25] MEDS ORDERED: POTASSIUM CHLORIDE CRTAB 20 MEQ TABCR PO SCH (23:00)
[2022-06-26] MEDS ORDERED: methylPREDNISolone 40 MG in SYRINGE 0 ML IV SCH (06:00)
--- NOTE | 2022-06-26 07:45 | Hospitalist Progress Note ---
Date of Service June 26, 2022 Assessment & Plan (1) Community acquired pneumonia: Plan: Micha is a 67 year old male with history of hypertension, hyperlipidemia, and tachycardia who presents for an acute illness and was admitted to the hospital for sepsis a/w pneumonia. Sepsis a/w Community Acquired Pneumonia - Symptoms inset 06/23 with cough, rhinorrhea, and congestion; SIRS 3/4 + Source (Pneumonia) = Sepsis - COVID, Flu, and RSV negative - Blood culture no growth 24 hours - Received 1L bolus in ED, 1g Ceftriaxone, and 500 mg Azithromycin. Additional 1g of Ceftriaxone in ED - MRSA nares neg - CRP 24.58 H, procalcitonin negative - Anaerobic coverage not indicated at present d/t low aspiration risk - Cont. Ceftriaxone 2 g daily, Azithromycin 500 mg IV daily. D/c'd solumedrol. - Cont. Duoneb q2h PRN, Mucinex 1200 mg BID - Consider CT chest if unfavorable response to antibiotics to evaluate for endobronchial lesion. Possible lymphadenopathy was seen on chest XR. - Encouraged tobacco cessation Elevated Troponin - HS Troponin 32.1 on presentation, stable. Likely due to demand ischemia. - No active chest pain - EKG PRN for chest pain Hypokalemia - K 3.1 on admission, repleted - trend lytes Hypertension - Elevated on presentation w/o chest pain, headaches, or visual change - Continue home medications (Amlodipine, HCTZ, and Lisinopril) - Continue daily Aspirin 81 mg Hyperlipidemia - ASCVD Risk: 24.5%, recommending mod-high intensity statin - Patient not currently on statin therapy - Recommending consideration for discharge with statin FEN/GI: HH Code status: Full Code DVT ppx: SCD Dispo:med tele (2) Tachycardia: (3) Sepsis: (4) Hypokalemia: (5) Elevated troponin: Admission and Anticipated Discharge Date Admission Date: June 25, 2022 Supervising Physician Co-Signing Physician Notes I personally examined the patient and verified all barbosa points of history and exam, discussed case, and agree with decision making with Dr Anthony. Feeling better, still has a lot of junk cough up and feels a rattling in his chest but better than whenever he came in. Vitals noted, in general he is awake and alert pleasant no distress. HEENT normocephalic atraumatic mucous membranes moist. Lungs show diffuse bilateral probably right somewhat worse than left rhonchi no wheezes no accessory muscle use no conversational dyspnea good effort. Neuro shows no focal deficits. Skin without rashes pallor or icterus. Community-acquired pneumonia with sepsis and subsequent acute respiratory failure with hypoxia present on admissionall seems to be improving. Continue current antibiotics. Elevated troponin appears to be mild demand ischemia. Otherwise as above. DVT prophylaxisLovenox Subjective Seen at bedside this morning. Feels improved since admission. Still has cough and feels chest congestion. On supplemental O2 which helps with sob. Denies chest pain, abd pain, fever, chills, headache, N/V. Review of Systems Review of Systems: All systems reviewed & are unremarkable except as noted in HPI & below Physical Exam Physical Exam: Gen: in no acute distress, interactive, alert HEENT: Supple, no LAD, no thyromegaly, no JVD Resp:Diffuse expiratory wheezing/rhonchi. Mild retractions with some accessory muscle use. CV:RRR, normal S1/S2, no M/R/G Abd: Soft, non-distended, nontender Extr: 2+ dp bilaterally, no edema Skin: No rashes lesions or erythema Results & Data Results & Data ([facility]) Vital Signs (Past 12 Hours) Vital Signs Temp Pulse Pulse Resp BP BP Pulse Ox 06/26/22 02:33 36.8 C 85 20 142/80 H 91 06/25/22 23:10 37.2 C 102 H 22 167/98 H 93 06/25/22 23:16 104 H 06/25/22 23:07 06/25/22 22:10 100 H 33 H 93 06/25/22 22:00 88 30 H 93 06/25/22 22:00 148/85 H 06/25/22 21:50 90 37 H 95 06/25/22 21:45 141/80 H 06/25/22 21:45 89 37 H 94 06/25/22 21:40 100 H 27 H 95 06/25/22 21:04 91 H 37 H 92 06/25/22 20:30 95 H 37 H 94 06/25/22 20:30 142/74 H 06/25/22 20:20 97 H 34 H 92 06/25/22 20:15 95 H 31 H 92 06/25/22 20:15 138/77 06/25/22 20:10 97 H 28 H 92 06/25/22 20:00 98 H 32 H 93 06/25/22 20:00 151/78 H 06/25/22 19:50 106 H 27 H 92 06/25/22 19:45 141/75 H 06/25/22 19:45 100 H 35 H 93 06/25/22 19:40 103 H 34 H 92 06/25/22 20:18 36.8 C O2 Del Method O2 Flow Rate 06/26/22 02:33 Nasal Cannula 3 06/25/22 23:10 Nasal Cannula 3 06/25/22 23:16 06/25/22 23:07 Nasal Cannula 3 06/25/22 22:10 06/25/22 22:00 06/25/22 22:00 06/25/22 21:50 06/25/22 21:45 06/25/22 21:45 06/25/22 21:40 06/25/22 21:04 06/25/22 20:30 06/25/22 20:30 06/25/22 20:20 06/25/22 20:15 06/25/22 20:15 06/25/22 20:10 06/25/22 20:00 06/25/22 20:00 06/25/22 19:50 06/25/22 19:45 06/25/22 19:45 06/25/22 19:40 06/25/22 20:18 Laboratory Results 06/25/22 06/25/22 06/25/22 Range/Units 23:16 20:55 18:32 PT (9.0-12.0) Seconds INR (0.9-1.1) APTT (21.0-31.0) Seconds PTT Ratio Troponin I High Sens 33.0 H (0-20) pg/ml C-Reactive Protein (0-0.5) mg/dl Nasal Screen MRSA (PCR) Negative (Negative) SARS-CoV-2 (PCR) NEGATIVE (Negative) Influenza Type A (PCR) Negative (Neg) Influenza Type B (PCR) Negative (Neg) RSV (RT-PCR) Negative (Neg) 06/25/22 06/25/22 Range/Units 17:38 16:45 PT 10.4 (9.0-12.0) Seconds INR 1.0 (0.9-1.1) APTT 24.3 (21.0-31.0) Seconds PTT Ratio 0.9 Troponin I High Sens (0-20) pg/ml C-Reactive Protein 24.58 H (0-0.5) mg/dl Nasal Screen MRSA (PCR) (Negative) SARS-CoV-2 (PCR) (Negative) Influenza Type A (PCR) (Neg) Influenza Type B (PCR) (Neg) RSV (RT-PCR) (Neg) Resident Activity Tracking Resident Involvement: Resident Care Provided Care Provided: Adult Hospital Medicine (1) Community acquired pneumonia Laterality: unspecified laterality Qualified Code(s): J18.9 - Pneumonia, unspecified organism
[2022-06-26] MEDS: cefTRIAXone SODIUM 2,000 MG in DEXTROSE 5% 50 ML IV SCH (09:45)
[2022-06-26] MEDS: ASPIRIN 81 MG ECTAB PO SCH (09:46)
[2022-06-26] MEDS: ENOXAPARIN INJ 40 MG/0.4 ML SYR SQ SCH (09:46)
[2022-06-26] MEDS: guaiFENesin 600 MG TABCR PO SCH ×2 (09:46→20:56)
[2022-06-26] MEDS: amLODIPine BESYLATE 5 MG TAB PO SCH (09:46)
[2022-06-26] MEDS: hydroCHLOROthiazide 25 MG TAB PO SCH (09:46)
[2022-06-26] MEDS: lisinopril 40 MG TAB PO SCH (09:46)
[2022-06-26] MEDS: AZITHROMYCIN 500 MG in DEXTROSE 5% 250 ML IV SCH (09:47)
--- NOTE | 2022-06-26 19:07 | Billing Data ---
Date of Service June 26, 2022 Coding Level of Care Code 11986 Subseq Hosp Care Lvl 3
--- NOTE | 2022-06-26 19:59 | Billing Data ---
Date of Service June 26, 2022 Coding Level of Care Code 42145 Initial Inpt Care Lvl 3
[2022-06-27 06:49] LABS: Hematocrit (blood only) 42.4 % (40.1-51.0); Hemoglobin 14.2 g/dl (14.0-18.0); White Blood Count 24.36 K/ul (4.8-10.8)
--- NOTE | 2022-06-27 07:05 | Hospitalist Progress Note ---
Date of Service June 27, 2022 Assessment & Plan (1) Community acquired pneumonia: Plan: Micha is a 67 year old male with history of hypertension, hyperlipidemia, and tachycardia who presents for an acute illness and was admitted to the hospital for sepsis a/w pneumonia. Sepsis a/w Community Acquired Pneumonia - Symptoms inset 06/23 with cough, rhinorrhea, and congestion; SIRS 3/4 + Source (Pneumonia) = Sepsis - COVID, Flu, and RSV negative - Blood culture no growth thus far - Received 1L bolus in ED, 1g Ceftriaxone, and 500 mg Azithromycin. Additional 1g of Ceftriaxone in ED. - MRSA nares neg - initial CRP 24.58, improving - WBC 24, remains elevated - procalcitonin negative - Anaerobic coverage not indicated at present d/t low aspiration risk - Cont. Ceftriaxone 2 g daily, Azithromycin 500 mg IV daily. D/c'd solumedrol. - Cont. Duoneb q2h PRN, Mucinex 1200 mg BID - Consider CT chest if unfavorable response to antibiotics to evaluate for endobronchial lesion. Possible lymphadenopathy was seen on chest XR. - Encouraged tobacco cessation Elevated Troponin, peaked - HS Troponin 32.1 on presentation. Likely due to demand ischemia. - No active chest pain - EKG PRN for chest pain Hypokalemia - K 3.1 on admission, repleted - trend lytes Hypertension - Elevated on presentation w/o chest pain, headaches, or visual change - Continue home medications (Amlodipine, HCTZ, and Lisinopril) - Continue daily Aspirin 81 mg Hyperlipidemia - ASCVD Risk: 24.5%, recommending mod-high intensity statin - Patient not currently on statin therapy - Recommending consideration for discharge with statin FEN/GI: HH Code status: Full Code DVT ppx: SCD Dispo:med tele (2) Tachycardia: (3) Sepsis: (4) Hypokalemia: (5) Elevated troponin: Admission and Anticipated Discharge Date Admission Date: June 25, 2022 Subjective Seen at bedside this morning. Feels improved since admission. Still has cough and feels chest congestion. On supplemental O2 which helps with sob. Denies chest pain, abd pain, fever, chills, headache, N/V. Review of Systems Review of Systems: All systems reviewed & are unremarkable except as noted in HPI & below Physical Exam Physical Exam: Gen: in no acute distress, interactive, alert HEENT: Supple, no LAD, no thyromegaly, no JVD Resp:Diffuse expiratory wheezing/rhonchi. Mild retractions with some accessory muscle use. CV:RRR, normal S1/S2, no M/R/G Abd: Soft, non-distended, nontender Extr: 2+ dp bilaterally, no edema Skin: No rashes lesions or erythema Results & Data Results & Data ([facility]) Vital Signs (Past 12 Hours) Vital Signs Temp Pulse Pulse Resp BP Pulse Ox O2 Del Method 06/27/22 03:14 36.9 C 89 22 151/97 H 94 Nasal Cannula 06/26/22 23:34 85 06/26/22 22:59 37.2 C 81 18 144/77 H 94 Nasal Cannula 06/26/22 19:35 Nasal Cannula 06/26/22 19:09 37.3 C 105 H 20 156/83 H 93 Nasal Cannula O2 Flow Rate 06/27/22 03:14 3 06/26/22 23:34 06/26/22 22:59 3 06/26/22 19:35 2 06/26/22 19:09 3 (1) Community acquired pneumonia Laterality: unspecified laterality Qualified Code(s): J18.9 - Pneumonia, unspecified organism
[2022-06-27 07:22] LABS: BUN Creatinine Ratio 26.8 (10-20); Calcium 9.3 mg/dl (8.5-10.1); Creatinine Clr Calc Pharmacy 106.1 ml/min; Est GFR (Non-African American) 95.7 ml/min; Potassium 3.9 mmol/L (3.5-5.1)
[2022-06-27 07:25] LABS: Basophils # (auto) 0.06 K/uL (0-0.2); Basophils % (auto) 0.2 %; Echinocytes 1+; Eosinophils # (auto) 0.01 K/uL (0-0.50); Immature Granulocytes # (auto) 0.16 K/uL (0.00-0.02); Immature Granulocytes % (auto) 0.7 %; Lymphocytes # (auto) 2.88 K/uL (1.2-3.4); Lymphocytes % (auto) 11.8 %; Mean Corpuscular Hgb Conc 33.5 g/dL (32.0-36.0); Mean Corpuscular Volume 89.6 fL (80.0-100.0); Mean Platelet Volume 10.4 fL (9.4-12.4); Monocytes # (auto) 1.75 K/uL (0.24-0.82); Monocytes % (auto) 7.2 %; Neutrophils % (auto) 80.1 %; Platelet Count 373 K/uL (130-400); Platelet Estimate Increased (Normal); RDW Coefficient of Variation 14.2 % (11.5-14.5); RDW Standard Deviation 46.6 fL (36.4-46.3); Red Blood Count 4.73 M/uL (4.63-6.08)
[2022-06-27] MEDS: cefTRIAXone SODIUM 2,000 MG in DEXTROSE 5% 50 ML IV SCH (09:35)
[2022-06-27] MEDS: ASPIRIN 81 MG ECTAB PO SCH (09:40)
[2022-06-27] MEDS: guaiFENesin 600 MG TABCR PO SCH (09:40)
[2022-06-27] MEDS: hydroCHLOROthiazide 25 MG TAB PO SCH (09:40)
[2022-06-27] MEDS: lisinopril 40 MG TAB PO SCH (09:41)
[2022-06-27] MEDS: ENOXAPARIN INJ 40 MG/0.4 ML SYR SQ SCH (09:41)
[2022-06-27] MEDS: amLODIPine BESYLATE 5 MG TAB PO SCH (09:41)
[2022-06-27] MEDS: AZITHROMYCIN 500 MG in DEXTROSE 5% 250 ML IV SCH (10:35)
--- NOTE | 2022-06-27 13:31 | Discharge Summary ---
Date of Service June 27, 2022 Admission HPI Per Admitting Provider Micha is a 67 year old male with history of hypertension, hyperlipidemia, and tachycardia who presents for an acute illness and was admitted to the hospital for sepsis a/w pneumonia. ED Course: NS Bolus 1000 mL, Acetaminophen, Ceftriaxone 1 g, Azithromycin 500 mg Micha notes that on Saturday 06/23 he developed a cough, rhinorrhea, and shortness of breath. Patient notes that his cough was productive of green sputum since Saturday. At first, he believed he had a cold so he started taking Mucinex. Ultimately, he was unable to get ahead of his shortness of breath and his symptoms progressed over the weekend, to the point that his made him come into the ER today. Patient experienced associated body aches and chills, but did not note a fever at home. He states that his sinues became congested and he began having aching in his upper jaw and ears (which has since resolved). He denies any chest pain or pleuritic pain. Patient is not experiencing any abdominal pain, nausea, or emesis. He has had no bowel/bladder changes and has not experienced any lower extremity swelling. Patient notes no known history of lung disease (wheezing/COPD/asthma) and does not require oxygen or inhalers at baseline. He endorses smoking 1 PPD for 50 years. He has no dyspnea on a normal day. Patient denies any episodes of emesis or choking. He has had no difficulty swallowing and believes aspiration is low likelihood. Tachycardia was present at patient's last PCP appointment in April, labs ordered at this visit were unremarkable per patient (notably normal TSH in chart). Chronic conditions: Reviewed Medications: Reviewed Allergies: NKDA Principal Diagnosis Community acquired pneumonia Discharge Exam Gen: in no acute distress, interactive, alert HEENT: Supple, no LAD, no thyromegaly, no JVD Resp:Bibasilar expiratory wheezing/rhonchi improving. Upper airways clear. No accessory muscle use. CV:RRR, normal S1/S2, no M/R/G Abd: Soft, non-distended, nontender Extr: 2+ dp bilaterally, no edema Skin: No rashes lesions or erythema Discharge Data Allergies Allergy/AdvReac Type Severity Reaction Status Date / Time No Known Allergies Allergy Unverified 06/25/22 21:08 Consultations 06/25/22 19:37 ED Decision to Admit Stat Ordered Studies Laboratory Results WBC 24.36 K/ul (4.8-10.8) H 06/27/22 06:14 RBC 4.73 M/uL (4.63-6.08) 06/27/22 06:14 Hgb 14.2 g/dl (14.0-18.0) 06/27/22 06:14 Hct 42.4 % (40.1-51.0) 06/27/22 06:14 MCV 89.6 fL (80.0-100.0) 06/27/22 06:14 MCH 30.0 pg (25.0-34.0) 06/27/22 06:14 MCHC 33.5 g/dL (32.0-36.0) 06/27/22 06:14 RDW Std Deviation 46.6 fL (36.4-46.3) H 06/27/22 06:14 RDW Coeff of Atilio 14.2 % (11.5-14.5) 06/27/22 06:14 Plt Count 373 K/uL (130-400) 06/27/22 06:14 MPV 10.4 fL (9.4-12.4) 06/27/22 06:14 Immature Gran % (Auto) 0.7 % 06/27/22 06:14 Neut % (Auto) 80.1 % 06/27/22 06:14 Lymph % (Auto) 11.8 % 06/27/22 06:14 Leon % (Auto) 7.2 % 06/27/22 06:14 Eos % (Auto) 0.0 % 06/27/22 06:14 Baso % (Auto) 0.2 % 06/27/22 06:14 Neut # (Auto) 19.50 K/uL (1.4-6.5) H 06/27/22 06:14 Lymph # (Auto) 2.88 K/uL (1.2-3.4) 06/27/22 06:14 Leon # (Auto) 1.75 K/uL (0.24-0.82) H 06/27/22 06:14 Eos # (Auto) 0.01 K/uL (0-0.50) 06/27/22 06:14 Baso # (Auto) 0.06 K/uL (0-0.2) 06/27/22 06:14 Immature Gran # (Auto) 0.16 K/uL (0.00-0.02) H 06/27/22 06:14 Platelet Estimate Increased (Normal) H 06/27/22 06:14 Echinocytes 1+ 06/27/22 06:14 PT 10.4 Seconds (9.0-12.0) 06/25/22 17:38 INR 1.0 (0.9-1.1) 06/25/22 17:38 APTT 24.3 Seconds (21.0-31.0) 06/25/22 17:38 PTT Ratio 0.9 06/25/22 17:38 VBG pH 7.45 (7.36-7.41) H 06/25/22 17:38 VBG pCO2 46 mmHg (38-50) 06/25/22 17:38 VBG pO2 33 mmHg 06/25/22 17:38 VBG HCO3 32 mmol/L 06/25/22 17:38 VBG O2 Saturation < 60.0 % 06/25/22 17:38 VBG Base Excess 6.9 mEq/L 06/25/22 17:38 Sodium 140 mmol/L (136-145) 06/27/22 06:14 Potassium 3.9 mmol/L (3.5-5.1) D 06/27/22 06:14 Chloride 103 mmol/L (98-107) 06/27/22 06:14 Carbon Dioxide 30 mmol/L (21-32) 06/27/22 06:14 Anion Gap 7 (3-11) 06/27/22 06:14 BUN 19 mg/dl (6-23) 06/27/22 06:14 Creatinine 0.71 mg/dl (0.6-1.4) 06/27/22 06:14 Est Cr Clr Drug Dosing 106.1 ml/min 06/27/22 06:14 Est GFR ( Amer) 111.0 ml/min 06/27/22 06:14 Est GFR (Non-Af Amer) 95.7 ml/min 06/27/22 06:14 BUN/Creatinine Ratio 26.8 (10-20) H 06/27/22 06:14 Glucose 108 mg/dl (70-99(Fasting)) H 06/27/22 06:14 Lactate 1.2 mmol/L (0.4-2.0) 06/25/22 17:38 Calcium 9.3 mg/dl (8.5-10.1) 06/27/22 06:14 Magnesium 2.1 mg/dl (1.7-2.4) 06/25/22 16:45 Total Bilirubin 0.5 mg/dl (0.2-1.0) 06/25/22 16:45 Direct Bilirubin 0.2 mg/dl (0-0.2) 06/25/22 16:45 AST 44 U/L (13-39) H 06/25/22 16:45 ALT 35 U/L (7-52) 06/25/22 16:45 Alkaline Phosphatase 83 U/L (34-104) 06/25/22 16:45 Troponin I High Sens 33.0 pg/ml (0-20) H 06/25/22 23:16 C-Reactive Protein 14.00 mg/dl (0-0.5) H 06/27/22 06:14 Total Protein 7.4 gm/dl (6.0-8.3) 06/25/22 16:45 Albumin 3.9 gm/dl (3.4-5.0) 06/25/22 16:45 Globulin 3.5 gm/dl (2.5-4.0) 06/25/22 16:45 Albumin/Globulin Ratio 1.1 (0.9-2) 06/25/22 16:45 Procalcitonin 0.29 ng/ml (0-0.5) 06/25/22 16:45 Nasal Screen MRSA (PCR) Negative (Negative) 06/25/22 20:55 SARS-CoV-2 (PCR) NEGATIVE (Negative) 06/25/22 18:32 Influenza Type A (PCR) Negative (Neg) 06/25/22 18:32 Influenza Type B (PCR) Negative (Neg) 06/25/22 18:32 RSV (RT-PCR) Negative (Neg) 06/25/22 18:32 Impressions Chest X-Ray 06/25/22 16:32 XR chest 1V portable HISTORY: 67 years-old Male SOB acute cough with shortness of breath COMPARISON: Chest radiograph 10/27/2013 TECHNIQUE: AP view of the chest FINDINGS: Cardiac silhouette is normal in size. Atherosclerosis of the aorta. Right greater left hilar prominence. No pneumothorax or large pleural effusion. Mild reticular nodular densities of the left midlung and right lung base. Degenerative changes of the shoulders and spine. IMPRESSION: 1. Mild reticular nodular opacities of the left midlung and right lung base are suspicious for an infectious or inflammatory pneumonitis. 2. Bilateral hilar prominence may represent associated lymphadenopathy. Attention at follow-up recommended. ACT 112: Negative or not required by law. The above report was generated using voice recognition software. It may contain grammatical, syntax or spelling errors. Electronically signed by: Bryant Frazier M.D. 06/25/2022 5:16 PM Hospital Course (1) Community acquired pneumonia: Micha is a 67 year old male with history of hypertension, hyperlipidemia, and tachycardia who presents for an acute illness and was admitted to the hospital for sepsis secondary to pneumonia. Sepsis a/w Community Acquired Pneumonia - Symptoms inset 06/23 with cough, rhinorrhea, and congestion; SIRS 3/4 + Source (Pneumonia) = Sepsis - COVID, Flu, and RSV negative - Blood culture no growth thus far - Received 1L bolus in ED, 1g Ceftriaxone, and 500 mg Azithromycin. Additional 1g of Ceftriaxone in ED. - MRSA nares neg - initial CRP 24.58, improving - WBC 24, remains elevated suspect due to infection and initial steroid dose; repeat cbc outpatient for resolution - procalcitonin negative - Anaerobic coverage not indicated at present d/t low aspiration risk - Ceftriaxone 2 g daily, Azithromycin 500 mg IV daily in hospital. D/c'd solumedrol. Discharged on azithromycin x5 total days and Augmentin x7 total days. - Would recommend repeat chest XR in 1 month for resolution. - f/u pcp early next week to monitor progress. Elevated Troponin, peaked - HS Troponin 32.1 on presentation. Likely due to demand ischemia. - No active chest pain - EKG PRN for chest pain Hypokalemia - K 3.1 on admission, repleted Hypertension - Elevated on presentation w/o chest pain, headaches, or visual change - Continue home medications (Amlodipine, HCTZ, and Lisinopril) - Continue daily Aspirin 81 mg Hyperlipidemia - ASCVD Risk: 24.5%, recommending mod-high intensity statin - Patient not currently on statin therapy - Recommending consideration for statin, f/u pcp (2) Tachycardia: (3) Sepsis: (4) Hypokalemia: (5) Elevated troponin: Total Time Total Time Spent Total Time Spent (In Minutes): 30 Discharge Plan Discharge Items Patient Disposition: Home - Self-Care Reason For Visit: SEPSIS/PNEUMONIA Discharge Diagnosis: Pneumonia Activity: Resume your previous activity Non-emergency contact: Primary Care Provider Call non-emergency contact if: you have any medication questions and your symptoms worsen Follow-up/Referrals: Anna Marie Gan CRNP [Primary Care Provider] - 07/02/22 12:00 pm (Follow up appointment with Dr. De Luna. Please arrive 15 minutes prior to appointment time. ) Diet: Heart Healthy Addtl Attending Provider Instructions: You admitted to the hospital for a pneumonia which was causing his shortness of breath. We treated you with 2 different antibiotics and you have clinically been improving. Your lungs have been sounding better and you no longer require oxygen. We will continue 2 different antibiotics in the outpatient setting. 1 of these medications will be azithromycin which she will take once a day starting tomorrow. The other medication will be Augmentin which will be taken twice a day for the next 5 days, the next dose being this evening. Pneumonia can take up to a month to completely resolve so you will gradually improve clinically. You should follow-up with your primary care provider early next week for further management. Antibiotics have been sent to your pharmacy. Pending Studies at Discharge: No Stand-Alone Forms: [facility] Medications and DC Order Prescriptions: New azithromycin 250 mg tablet 250 mg PO DAILY Qty: 3 0RF Rx Instructions: next dose 06/28 amoxicillin-pot clavulanate 875-125 mg tablet 1 tab PO BID Qty: 11 0RF Rx Instructions: next dose evening 06/27 Continued naproxen sodium [Aleve] 220 mg capsule 220 mg PO BID Qty: 60 2RF aspirin 81 mg tablet,delayed release (DR/EC) 81 mg PO DAILY Qty: 30 2RF amlodipine 10 mg tablet 10 mg PO DAILY Qty: 90 3RF hydrochlorothiazide 25 mg tablet 25 mg PO DAILY Qty: 90 3RF lisinopril 40 mg tablet 40 mg PO DAILY Qty: 90 3RF zinc sulfate 66 mg tablet 66 mg PO DAILY PRN (Reason: Unknown) Discharge Orders: Discharge Order (Routine); Ordered 06/27/22 Ordered By: Phillip Anthony Admission Data Admit Date/Time: 06/25/22 21:25 Attending Provider: Efrem De Jesus Admit Provider: Aisha Chowdhury Primary Care Provider: Anna Marie Gan Other Providers: Ivan Soliman Other Interventions: Discharge Summary Assessment (RN) Last Done: 06/27/22 13:22 Supervising Physician Co-Signing Physician Notes I personally examined the patient and verified all barbosa points of history and exam, discussed case, and agree with decision making with Dr Anthony. feels good off O2 wants to go home. still rattling in his chest some but better. Vitals noted, in general he is awake and alert pleasant no distress. HEENT normocephalic atraumatic mucous membranes moist. Lungs cta b/l no rr//w no accessory muscle use no conversational dyspnea good effort. Neuro shows no focal deficits. Skin without rashes pallor or icterus. Community-acquired pneumonia with sepsis and subsequent acute respiratory failure with hypoxia present on admissionall seems to be improving. off O2, safe for home - PO zithromax/augmentin. Elevated troponin appears to be mild demand ischemia. Otherwise as above. DVT prophylaxisLovenox Resident Activity Tracking Resident Involvement: Resident Care Provided Care Provided: Adult Hospital Medicine
--- NOTE | 2022-06-27 19:28 | Billing Data ---
Date of Service June 27, 2022 Coding Level of Care Code D/C DAY MANAGEMENT <30 MINS
--- NOTE | 2022-06-27 21:41 | Electrocardiogram Report ---
Test Reason : Blood Pressure : / mmHG Vent. Rate : 116 BPM Atrial Rate : 116 BPM P-R Int : 150 ms QRS Dur : 100 ms QT Int : 316 ms P-R-T Axes : 071 033 075 degrees QTc Int : 439 ms Poor data quality, interpretation may be adversely affected Sinus tachycardia Possible Left atrial enlargement Borderline ECG When compared with ECG of 20-MAY-2014 15:47, Vent. rate has increased BY 47 BPM Confirmed by Aldo Billings ([id number]) on 06/27/2022 9:41:26 PM Referred By: REFERRED SELF Confirmed By:Aldo Billings
--- NOTE | 2022-06-27 23:12 | Electrocardiogram Report ---
Test Reason : Blood Pressure : / mmHG Vent. Rate : 115 BPM Atrial Rate : 115 BPM P-R Int : 168 ms QRS Dur : 098 ms QT Int : 312 ms P-R-T Axes : 079 031 080 degrees QTc Int : 431 ms Poor data quality, interpretation may be adversely affected Sinus tachycardia Possible Left atrial enlargement Nonspecific T wave abnormality Abnormal ECG When compared with ECG of 25-JUN-2022 16:28, No significant change Confirmed by Aldo Billings ([id number]) on 06/27/2022 11:11:58 PM Referred By: REFERRED SELF Confirmed By:Aldo Billings
== END 2022-06-27 15:29 | disposition home or self-care (01) | DRG 871 ==
LOC: ED 16:22 → SUATTDRO 21:25 → 2S 21:25

== ENCOUNTER 2024-01-30 07:06 | Inpatient (IN) ==
--- NOTE | 2023-12-19 12:08 | PAT Medication Instructions ---
Medication Instructions Date of Service December 19, 2023 Home Medications amlodipine 10 mg tablet 10 mg PO PM aspirin 81 mg tablet,delayed release 81 mg PO QAM diphenhydramine HCl 25 mg capsule (ZzzQuil) 25 mg PO HS PRN Sleep hydrochlorothiazide 25 mg tablet 25 mg PO QAM lisinopril 40 mg tablet 40 mg PO QAM naproxen sodium 220 mg capsule (Aleve) 220 mg PO BID PRN Pain vit C 250 mg-vit E 90 mg-zinc 40 mg-copper 1 [id number]-[id number] capsule (PreserVision AREDS-2) 1 tab PO QAM MEDICATION INSTRUCTIONS: ASK your surgeon for instructions naproxen sodium 220 mg capsule (Aleve) 220 mg PO BID PRN Pain ASK your prescriber and surgeon aspirin 81 mg tablet,delayed release 81 mg PO QAM STOP taking 2 weeks before surgery vit C 250 mg-vit E 90 mg-zinc 40 mg-copper 1 [id number] capsule (PreserVision AREDS-2) 1 tab PO QAM DO NOT take the morning of surgery hydrochlorothiazide 25 mg tablet 25 mg PO QAM lisinopril 40 mg tablet 40 mg PO QAM Take evening before surgery amlodipine 10 mg tablet 10 mg PO PM diphenhydramine HCl 25 mg capsule (ZzzQuil) 25 mg PO HS PRN Sleep Other Notes Remember: NOTHING TO EAT OR DRINK AFTER MIDNIGHT If you have any questions please call us at [phone] or [phone] or [phone] or [phone]
--- NOTE | 2023-12-31 13:08 | Anesthesiology Consultation ---
Date of Service December 31, 2023 Assessment & Plan (1) Encounter for pre-operative examination: Chart Review Chart Review: Acceptable Risk for Surgery (pending PCP clearance ) and Patient seen in Pre Admission Testing - Awaiting PCP clearance 01/16/24 ([place]) - Patient is NOT an OPJ candidate per surgeon per patient (due to nature of procedure) Drinks 5-6 beers daily (usually in the evening) Per PAT appt on 12/31/23, no recent illness/disease exposures, illness related symptoms, or recent illness/disease positive tests. Will leave to surgeon's discretion if preop Covid testing needed Teaching & Discussion Pre-Anesthesia Teaching/Discussion Notes: Instructed NPO after midnight before surgery,except medications with 15 cc of water. Medication instructions provided according to the [facility] guidelines. History Surgery Operation Date: 01/30/24 09:50 Proposed Procedures p Right Unicompartmental Knee Replacement Conversion to Total Knee Replacement - Selvin Banks MD Height/Weight Height: 5 ft 8 in Weight: 101.3 kg Allergies Allergy/AdvReac Type Severity Reaction Status Date / Time No Known Allergies Allergy Verified 12/16/23 11:17 Medications Home Medications Medication Instructions Recorded Confirmed Last Taken amlodipine 10 mg tablet 10 mg PO PM 12/16/23 12/16/23 Unknown aspirin 81 mg tablet,delayed 81 mg PO QAM 12/16/23 12/16/23 Unknown release diphenhydramine HCl 25 mg capsule 25 mg PO HS PRN Sleep 12/16/23 12/16/23 Unknown (ZzzQuil) hydrochlorothiazide 25 mg tablet 25 mg PO QAM 12/16/23 12/16/23 Unknown lisinopril 40 mg tablet 40 mg PO QAM 12/16/23 12/16/23 Unknown naproxen sodium 220 mg capsule 220 mg PO BID PRN Pain 12/16/23 12/16/23 Unknown (Aleve) vit C 250 mg-vit E 90 mg-zinc 40 1 tab PO QAM 12/16/23 12/16/23 Unknown mg-copper 1 [id number]-vrncmx capsule (PreserVision AREDS-2) Past Medical History Medical History Hyperlipidemia Hypertension Kidney stones History of- no recent issues passed on own Seasonal allergies Exercise / Class Metabolic Activity II 4-5 Yardwork/Stairs/Walk up hill (one flight of stairs - no chest pain or SOB) Past Family History Family History Sister Diabetes Grandfather Myocardial infarction Denies family history of Ovarian cancer Prostate cancer Breast cancer Colorectal cancer Stroke Past Surgical History Surgical History History of arthroscopy right knee History of partial knee replacement right History of tooth extraction History of total hip arthroplasty left Past Anesthesia History No Hx of Anesthesia Complications and No Family Hx of Anesthesia Complications History of PONV No Hx of PONV and No Hx of Motion Sickness Social History Smoking Status: Former smoker tobacco type: cigarettes Smoking cigarettes per day: Pack per day Do You Dip or Chew Tobacco: Yes (3-4 pouches/day- advised NPO ) Smoking End Date: 2021 Hx Alcohol Use: Yes Alcohol type: beer alcohol intake frequency: 3 or more drinks per day (5-6 beers/daily ) Hx Substance Use: No substance use type: does not use Review of Systems Patient denies chest pain, shortness of breath, dyspnea on exertion, reflux, cough, wheezing, palpitations. No hx of seizures, stroke, NM, apnea/snoring. No hx of blood clots or blood transfusions Physical Exam Vital Signs VITALS BP 123/76 P 89 TEMP 98.1 SP02 95% RESP 16 Constitutional no acute distress ENMT Mouth: no TMJ clicking Thyromental Distance: > or= 3.5 Finger Breadths (3.5) Mallampati Class: III Missing molars and side teeth Crowns to lower front teeth (recently done beginning of December 2023- surgeon's office informed) Neck neck extension not limited Respiratory normal respiratory effort; no respiratory distress Auscultation: lungs clear to auscultation bilaterally; no wheezes Cardiovascular Rate/Rhythm: regular rate and regular rhythm Heart Sounds: no murmur Vessels: no carotid bruit Musculoskeletal Spine: no pain with cervical ROM Extremities: extremities normal to inspection Psychiatric Orientation: alert Lab Results Anesthesia Preop Results Results Anesthesia Widget: WBC 9.17 K/ul (4.8-10.8) 12/31/23 Hgb 13.5 g/dl (14.0-18.0) L 12/31/23 Hct 41.0 % (42.0-52.0) L 12/31/23 Plt 333 K/uL (130-400) 12/31/23 Na 142 mmol/L (136-145) 12/31/23 K 4.2 mmol/L (3.5-5.1) 12/31/23 Cl 105 mmol/L (98-107) 12/31/23 CO2 32 mmol/L (21-32) 12/31/23 BUN 18 mg/dl (6-23) 12/31/23 Creat 1.14 mg/dl (0.6-1.4) 12/31/23 Glucose Level 109 mg/dl (70-99(Fasting)) H 12/31/23 PT 10.7 Seconds (9.0-12.0) 12/31/23 PTT 26 Seconds (21-31) 12/31/23 INR 1.0 (0.9-1.1) 12/31/23 Urine Color Yellow 12/31/23 Urine Appearance Clear (Clear) 12/31/23 Urine pH 6.5 (4.5-7.5) 12/31/23 Urine Specific [place] 1.019 (1.000-1.030) 12/31/23 Urine Protein Negative (Negative) 12/31/23 Urine Glucose (UA) Negative (Negative) 12/31/23 Urine Ketones Trace (Negative) H 12/31/23 Urine Blood Negative (Negative) 12/31/23 Urine Nitrite Negative (Negative) 12/31/23 Urine Bilirubin Negative (Negative) 12/31/23 Urine Urobilinogen Negative (Negative) 12/31/23 Urine Leukocyte Esterase Negative (Negative) 12/31/23 Blood Type A Positive 12/31/23 Antibody Screen NEGATIVE 12/31/23 Testing Electrocardiogram Date: 12/31/23 SR with PACs at 89bpm Otherwise normal EKG per cardio Chest X-Ray Date: 12/31/23 Findings: + NAD
--- NOTE | 2024-01-29 07:58 | History & Physical Report ---
Date of Service January 29, 2024 Assessment & Plan (1) Right knee pain: Plan: Patient will be admitted for conversion of right unicompartmental to primary total knee replacement. Overnight stay. Discharge then to home with home health using [facility] History of Present Illness Chief Complaint: Right knee pain Primary Care Provider: RAMA Martínez Patient is a 68-year-old healthy male with a history of right unicompartmental knee replacement on 10/25. He originally did well but gradually began developing increasing pain and discomfort in the knee. Serial radiographs of showed gradual deterioration of the lateral side of the knee. He has tried intra- articular injections but did not get lasting relief. He now has increased pain due to lateral disease collapse. The medial compartment uni still looks good. He is admitted now for elective conversion to total knee replacement due to again arthritis in his resurface compartment. Allergies Allergy/AdvReac Type Severity Reaction Status Date / Time No Known Allergies Allergy Verified 01/16/24 15:28 Home Medications Medication Instructions Recorded Confirmed Type amlodipine 10 mg tablet 10 mg PO PM 12/16/23 01/16/24 History aspirin 81 mg tablet,delayed 81 mg PO QAM 12/16/23 01/16/24 History release diphenhydramine HCl 25 mg capsule 25 mg PO HS PRN Sleep 12/16/23 01/16/24 History (ZzzQuil) hydrochlorothiazide 25 mg tablet 25 mg PO QAM 12/16/23 01/16/24 History lisinopril 40 mg tablet 40 mg PO QAM 12/16/23 01/16/24 History naproxen sodium 220 mg capsule 220 mg PO BID PRN Pain 12/16/23 01/16/24 History (Aleve) vit C 250 mg-vit E 90 mg-zinc 40 1 tab PO QAM 12/16/23 01/16/24 History mg-copper 1 qv-vcsxsv-ggtshm capsule (PreserVision AREDS-2) Past Med/Surg History Problem List Right knee pain Preop general physical exam Encounter for pre-operative examination Grief Hyperlipidemia (Chronic) Hypertension (Chronic) Medical History Kidney stones History of- no recent issues passed on own Hypertension Hyperlipidemia Seasonal allergies Surgical History History of total hip arthroplasty left History of partial knee replacement right History of arthroscopy right knee History of tooth extraction Family History Sister Diabetes Grandfather Myocardial infarction Denies family history of Ovarian cancer Prostate cancer Breast cancer Colorectal cancer Stroke Social History Smoking Status: Former smoker Tobacco Type: Smokeless Tobacco (Dip or Chew) Age Started Using Tobacco: 15; packs per day: 1; Cigarettes Per Day: Pack per day; Smoking End Date: 2021; Second Hand Exposure: No; Do You Dip or Chew Tobacco: Yes (3-4 pouches/day- advised NPO ); Tobacco Cessation Education Requested by Patient: No Hx Alcohol Use: Yes Alcohol type: beer Alcohol Intake Frequency: 4 or More x per/Week Alcohol Intake Frequency Comment: daily Hx Substance Use: No Preferred Language: Slovenian Communication Ability: Effective Visual Impairment: Limited Hearing Ability: Normal Floating Operator Required: No Beliefs That Will Affect Care: None marital status: / Current Living Situation: Alone Current Living Situation Comment: Home with current occupational status: 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 HEENT: NCAT, EOMI, PERRLA Neck: Negative bruits Heart: Regular rate and rhythm no murmurs Lungs: Breath sounds clear and present in all blake Abdomen: Flat soft nontender bowel sounds are positive Extremities: Right knee shows neutral alignment. There is a well-healed scar consistent with previous surgery there is a moderate effusion 1 to 2 mm lateral laxity lateral joint line pain on range of motion. Neurological and vascular: Intact Results & Data Results & Data Vital Signs (Past 12 Hours) Blood pressure 130/80 Pulse 88 (1) Right knee pain Chronicity: unspecified Qualified Code(s): M25.561 - Pain in right knee
[~2024-01-30 07:06] MED LIST changes: -LISI40TA PO; -NAPR1TAB9 PO; +ROPIVACAINE 0.5% 5 MG/ML 30 ML VIAL ONE; -ZINC1CAP PO
[2024-01-30] MEDS: LR 500ML BOLUS, THEN 15ML/HR IV SCH (07:45)
[2024-01-30] MEDS: VANCOMYCIN HCL 1,500 MG in SODIUM CHLORIDE 0.9% 500 ML IV SCH (07:45)
[2024-01-30] MEDS: METOCLOPRAMIDE HCL 10 MG TABLET PO SCH (08:15)
[2024-01-30] MEDS: GABAPENTIN 300 MG CAP PO SCH (08:15)
[2024-01-30] MEDS: dexAMETHasone**PF** 10 MG/ML VIAL IV SCH (08:15)
[2024-01-30] MEDS: ACETAMINOPHEN 500 MG TAB PO SCH (08:15)
[2024-01-30] MEDS: CeleBREX 200 MG CAP PO SCH (08:15)
[2024-01-30] MEDS: FAMOTIDINE 20 MG TAB PO SCH (08:15)
[2024-01-30] MEDS: LR 60ML/HR IV SCH (08:16)
[2024-01-30] MEDS: oxyCODONE HCL 10 MG TABCR (OxyCONTIN) PO SCH ×2 (08:16→20:24)
--- NOTE | 2024-01-30 09:44 | History & Physical Bridge Note ---
Date of Service January 30, 2024 History & Physical Bridge Note I have examined the patient, reviewed the History & Physical and in the interval since the performance of the History & Physical I have noted the following changes of clinical significance: no changes noted
[2024-01-30] MEDS ORDERED: MIDAZOLAM HCL 1 MG/ML 2ML VIAL ONE (09:55)
[2024-01-30] MEDS ORDERED: ONDANSETRON INJ 2 MG/ML 2 ML VIAL IV PRN (10:29)
[2024-01-30] MEDS ORDERED: ATROPINE SULFATE 0.1 MG/ML 10ML SYR IV PRN (10:29)
[2024-01-30] MEDS ORDERED: KETOROLAC 30 MG/ML VIAL IV PRN (10:29)
[2024-01-30] MEDS ORDERED: ePHEDrine sulfate 50 MG/ML AMP IV PRN (10:29)
[2024-01-30] MEDS ORDERED: HYDROmorphone INJ 1 MG/ML SYRINGE IV PRN (10:29)
[2024-01-30] MEDS ORDERED: PROPOFOL IV EMULSION 10 MG/ML 20 ML VIAL IV ONE ×2 (10:42→12:32)
[2024-01-30] MEDS: TRANEXAMIC ACID 1,000 MG **IV Pre-op IV SCH (10:54)
[2024-01-30] MEDS: ceFAZolin 2000MG 2,000 MG/15 ML SYR IV SCH ×2 (11:22→18:18)
[2024-01-30] MEDS ORDERED: ONDANSETRON INJ 2 MG/ML 2 ML VIAL ONE (11:48)
[2024-01-30] MEDS: ORTHO JOINT ANESTHETIC ONE (11:49)
[2024-01-30] MEDS: ROPIV 0.5% 246mg, Ketorolac 30mg, EPINEPHrine 0.5mg in NSS INFIL SCH (11:49)
[2024-01-30] MEDS ORDERED: ePHEDrine sulfate 50 MG/ML AMP ONE (12:04)
[2024-01-30] MEDS ORDERED: KETOROLAC 30 MG/ML VIAL ONE (12:28)
[2024-01-30] MEDS: TRANEXAMIC ACID 1,000 MG **IV Intra-op IV SCH (12:30)
[2024-01-30] MEDS ORDERED: PHENYLEPHRINE 100MCG/ML 10ML SYR IV ONE (12:32)
--- NOTE | 2024-01-30 12:37 | Post Operative Brief Note ---
Immediate Post Op Note Date of Surgery January 30, 2024 Pre & Post Diagnosis Operation Date: 01/30/24 10:15 Pre-Op Diagnosis: Osteoarthritis Right Knee Post-Op Diagnosis: Osteoarthritis Right Knee I identified the patient and participated in the time-out.: Yes Procedure Operation Date: 01/30/24 10:15 Actual Procedures p Right Unicompartmental Knee Replacement Conversion to Total Knee Replacement(Right) - Selvin Banks MD Surgeon Selvin Banks MD Knit Goods Cutter Hand Brent Tay PA-C Estimated Blood Loss 100 Findings Consistent with Post-Op Diagnosis Drains Hemovac Drain
[2024-01-30] MEDS ORDERED: oxyCODONE HCL IR 5 MG TAB (IMMEDIATE RELEASE) PO PRN (12:44)
--- NOTE | 2024-01-30 12:55 | Operative Report ---
Post Operative Report Pre & Post Diagnosis Operation Date: 01/30/24 10:15 Pre-Op Diagnosis: Osteoarthritis Right Knee Post-Op Diagnosis: Osteoarthritis Right Knee I identified the patient and participated in the time-out.: Yes Procedure Operation Date: 01/30/24 10:15 Actual Procedures p Right Unicompartmental Knee Replacement Conversion to Total Knee Replace ment(Right) - Selvin Banks MD Surgeon Selvin Banks MD Survey Party Chief Brent Tay PA-C Estimated Blood Loss 100 Findings Consistent with Post-Op Diagnosis unicompartmental knee was intact with no loosening. There was significant wear of the lateral femoral condyle and lateral tibial plateau. Some thickened synovium throughout. Specimens Explanted unicompartmental knee and bone and cartilage fragments Complications none Indications components used: [employer] journey 2 posterior stabilized knee system: Femur size 6 with Oxinium coating, tibia size 6 x 13 with tibial stem extension, patella size 35 oval. Description of Procedure Following satisfactory spinal anesthesia the patient was supine on the operating room table. The right lower extremity was prepared with ChloraPrep and draped sterilely. A surgical timeout was performed. Using the old knee incision a midline incision was made with a median parapatellar arthrotomy. Hemostasis was obtained. There was some thickening and scarring from the previous surgery. A partial synovectomy was performed especially in the lateral side of the knee to enhance exposure. The knee showed the changes noted above. Because of the tightness of the extensor mechanism the patella was addressed first the patella was resected and sized for a 35 button. This did relax the extensor mechanism and enhanced exposure to the lateral side of the knee. The cruciate ligaments were excised. Using the IM alignment system with a 5 degree valgus cut the distal femur was resected at an appropriate level. The femur was sized and appropriate femoral rotation was placed using Whitesides l ela and transepicondylar axis. The Femur was sized for a size 6 and all cuts were then completed using the 4-in-1 block. The tibial meniscal fragments were excised. The extramedullary alignment guide was used to resect the tibia care was taken to make sure the tibial slope was appropriate. The tibia was sized for a size 6 baseplate. Soft tissue balancing was then completed in flexion and extension. A trial reduction with the above- mentioned components was performed. This showed good tensioning and stability on the collateral ligaments stable range of motion and good patellar tracking from extension to about 100 unm054 degrees of flexion. The trial components were removed. The capsule was prepared with the orthopedic cocktail. After irrigation and drying the components were cemented using Miracle Z be cement cementing the tibia first, femur second, and patella third. When the cemented hardened the knee was checked and showed similar stability and patellar tracking. Wound was irrigated with 500 cc of experience irrigation. A Hemovac drain was placed. The arthrotomy was closed with interrupted [id number] sutures of 1 Vicryl and a running suture of #1 strata fix. Following irrigation the deeper subcutaneous tissues were closed with 0 strata fix. The skin was closed with surgical arnoldo. A- pressure wound dressing followed by compressive bandage were applied. The patient was returned to his bed taken to the recovery room in stable condition. Note: Brent DEJESUS was present and assisted throughout due to the complicated nature of this case. He help with preparation and set up, he assistant paralegal throughout. He assisted with hemostasis and exposure throughout the procedure. We also closed the capsular subcutaneous and skin layers and applied the postop dressing. I attest to the content of the Intraoperative Record and any orders documented therein. Any exceptions are noted below.
--- NOTE | 2024-01-30 13:30 | Anesthesiology Progress Note ---
Date of Service January 30, 2024 Anesthesia Post Procedure Vital Signs Vital Signs: Temp Pulse Resp BP Pulse Ox O2 Del Method 01/30/24 13:20 84 14 116/64 94 Room Air 01/30/24 13:10 88 15 125/80 95 Room Air 01/30/24 13:00 36.2 C L 85 18 130/73 96 Room Air 01/30/24 08:32 36.8 C 79 20 154/90 H 95 Room Air Transfer of Care Handoff Completed per policy Notes Mental Status: alert / awake / arousable Patient Amnestic to Procedure: Yes Nausea / Vomiting: adequately controlled Pain: adequately controlled Airway Patency, RR, SpO2: stable & adequate BP & HR: stable & adequate Hydration State: stable & adequate Neuraxial Anesthesia: was administered and sensory block is resolving Anesthetic Complications: no major complications apparent
[2024-01-30] MEDS ORDERED: TAMSULOSIN HCL 0.4 MG CAP PO PRN (14:17)
[2024-01-30] MEDS ORDERED: diphenhydrAMINE Capsule 25 MG CAP PO PRN (14:17)
[2024-01-30] MEDS: SODIUM CHLORIDE 0.9% 1,000 ML IV SCH (15:32)
[2024-01-30] MEDS: KETOROLAC TROMETHAMINE 15 MG/ML VIAL IV SCH (15:32)
[2024-01-30] MEDS: oxyCODONE HCL IR 5 MG TAB (IMMEDIATE RELEASE) PO PRN (16:32)
[2024-01-30] MEDS ORDERED: Nursing to Pharmacy Communication SCH (18:15)
[2024-01-30] MEDS: amLODIPine BESYLATE 5 MG TAB PO SCH (20:23)
[2024-01-31 07:28] LABS: Hematocrit (blood only) 35.9 % (42.0-52.0); Hemoglobin 11.9 g/dl (14.0-18.0); Mean Corpuscular Hemoglobin 28.8 pg (25.0-34.0); Mean Corpuscular Hgb Conc 33.1 g/dL (32.0-36.0); Mean Corpuscular Volume 86.9 fL (80.0-100.0); Mean Platelet Volume 9.8 fL (9.4-12.4); Platelet Count 337 K/uL (130-400); RDW Coefficient of Variation 14.4 % (11.5-14.5); Red Blood Count 4.13 M/uL (4.70-6.10); White Blood Count 19.08 K/ul (4.8-10.8)
[2024-01-31 07:51] LABS: BUN Creatinine Ratio 14.3 (10-20); Calcium 9.2 mg/dl (8.6-10.3); Creatinine Clr Calc Pharmacy 75.4 ml/min; Est GFR (Non-African American) 71.6 ml/min; Potassium 4.5 mmol/L (3.5-5.1)
[2024-01-31] MEDS: CEROVITE ADV FORMULA TAB PO SCH (08:31)
[2024-01-31] MEDS: lisinopril 40 MG TAB PO SCH (08:31)
[2024-01-31] MEDS: hydroCHLOROthiazide 25 MG TAB PO SCH (08:31)
--- NOTE | 2024-01-31 08:33 | Orthopedic Progress Note ---
Date of Service January 31, 2024 Assessment & Plan (1) Right knee pain: Plan: Patient is postop day #1 revision total knee replacement. He is doing well has been cleared by physical therapy and is ready to be discharged to home. He will be discharged to home this morning. He will be followed up by [facility] for [facility] in-home PT. We did review his medication protocol the use of the ice compression unit his activity level. Follow-up with me in the office in 2 weeks time Admission and Anticipated Discharge Date Admission Date: January 30, 2024 Subjective chief complaint: Postoperative day #1 right revision total knee replacement Patient reports no problems this morning. He has been up and ambulatory to the bathroom and been seen by physical therapy. His pain is well-controlled. He feels ready to go home. Physical Exam Physical Exam: Patient is examined at the bed side he is awake and oriented x 3 and offers no complaints. Elver wrap is clean dry and intact. He is neurologically and vascularly intact. Thigh and calf are soft and nontender. Hemovac output 450 cc total since surgery. Results & Data Vital Signs (Past 12 Hours) Vital Signs Temp Pulse Resp BP Pulse Ox O2 Del Method 01/31/24 07:00 36.6 C 79 18 149/87 H 96 Room Air 01/31/24 03:08 36.8 C 76 16 131/83 97 Room Air 01/31/24 00:00 36.7 C 74 16 157/85 H 98 Room Air Laboratory Results Lab values are stable. (1) Right knee pain Chronicity: unspecified Qualified Code(s): M25.561 - Pain in right knee
--- NOTE | 2024-02-03 14:11 | Discharge Summary ---
Date of Service February 03, 2024 Admission HPI Per Admitting Provider Patient is a 68-year-old healthy male with a history of right unicompartmental knee replacement on 10/25. He originally did well but gradually began developing increasing pain and discomfort in the knee. Serial radiographs of showed gradual deterioration of the lateral side of the knee. He has tried intra- articular injections but did not get lasting relief. He now has increased pain due to lateral disease collapse. The medial compartment uni still looks good. He is admitted now for elective conversion to total knee replacement due to again arthritis in his resurface compartment. Admission Exam Per Admitting Provider Physical Exam: Weight 95 kg BMI 32 General: Well-nourished well-developed male who appears younger than his stated age. HEENT: NCAT, EOMI, PERRLA Neck: Negative bruits Heart: Regular rate and rhythm no murmurs Lungs: Breath sounds clear and present in all blake Abdomen: Flat soft nontender bowel sounds are positive Extremities: Right knee shows neutral alignment. There is a well-healed scar consistent with previous surgery there is a moderate effusion 1 to 2 mm lateral laxity lateral joint line pain on range of motion. Neurological and vascular: Intact Principal Diagnosis Osteoarthritis right knee Discharge Data Allergies Allergy/AdvReac Type Severity Reaction Status Date / Time No Known Allergies Allergy Verified 01/30/24 08:02 Procedures Performed Operation Date: 01/30/24 10:15 Actual Procedures p Right Unicompartmental Knee Replacement Conversion to Total Knee Replacement(Right) - Selvin Banks MD Ordered Studies 01/30/24 05:00 US - OR guided needle placemen Routine Hospital Course (1) Right knee pain: Patient: TAYLA JANG Admit Date: 01/30/24 MR#: [id number] Att Phy: Selvin Banks MD Acct ID: [id number] Mona Phy: Anna Marie Gan CRNP Date: 1955 Fam Phy: Age: 68 Location: 3E Sex: M Room/Bed: E314-1 cc: ~ *NOTICE TO RECEIVING LIBERTARIAN/AGENCY This information is strictly Confidential and protected under [place] law. [place] law prohibits you from making any further disclosure of this information unless further disclosure is expressly permitted by the written consent of the person to whom it pertains or is authorized by law. A general authorization for the release of medical or other information is not sufficient for this purpose. Hospital accepts no responsibility if the information is made available to any other person, INCLUDING THE PATIENT. Date of Service January 31, 2024 Assessment & Plan (1) Right knee pain: Plan: Patient is postop day #1 revision total knee replacement. He is doing well has been cleared by physical therapy and is ready to be discharged to home. He will be discharged to home this morning. He will be followed up by [facility] for [facility] in-home PT. We did review his medication protocol the use of the ice compression unit his activity level. Follow-up with me in the office in 2 weeks time Admission and Anticipated Discharge Date Admission Date: January 30, 2024 Subjective chief complaint: Postoperative day #1 right revision total knee replacement Patient reports no problems this morning. He has been up and ambulatory to the bathroom and been seen by physical therapy. His pain is well-controlled. He feels ready to go home. Physical Exam Physical Exam: Patient is examined at the bed side he is awake and oriented x 3 and offers no complaints. Elver wrap is clean dry and intact. He is neurologically and vascularly intact. Thigh and calf are soft and nontender. Hemovac output 450 cc total since surgery. Results & Data Vital Signs (Past 12 Hours) Vital Signs Temp Pulse Resp BP Pulse Ox O2 Del Method 01/31/24 07:00 36.6 C 79 18 149/87 H 96 Room Air 01/31/24 03:08 36.8 C 76 16 131/83 97 Room Air 01/31/24 00:00 36.7 C 74 16 157/85 H 98 Room Air Laboratory Results Lab values are stable. (1) Right knee pain Chronicity: unspecified Qualified Code(s): M25.561 - Pain in right knee Signed By: <Electronically signed by Selvin Banks MD> 01/31/24 0834 Created: 01/31/24 0832 Total Time Total Time Spent Total Time Spent (In Minutes): 5 Discharge Plan Discharge Items Patient Disposition: Home - Home Health Services Reason For Visit: Osteoarthritis Right Knee Discharge Diagnosis: Osteoarthritis right knee Activity: Per Instructions section Weightbearing: Full weightbearing Non-emergency contact: Surgeon Call non-emergency contact if: you have any medication questions, your pain is not controlled, your temperature is above 101.5, your wound has increased redness and your wound has increased drainage Follow-up/Referrals: [facility] [Outside] (as per surgeon's office) Anna Marie Gan CRNP [Primary Care Provider] - Selvin Banks MD [Surgeon] - ( follow-up with Dr. Banks or his PA in 2 weeks from the day of your surgery for your first postoperative visit.) Diet: Regular Addtl Attending Provider Instructions: DR. VELÁSQUEZ POST-OP INSTRUCTIONS FOR TOTAL KNEE ARTHROPLASTY PLEASE REVIEW PRIOR TO SURGERY Day of Surgery You will be admitted and meet the nursing and anesthesia team. Dr. Banks will see you and sign your operative side. Anesthesia will place your spinal anesthetic in the pre-op area Your surgery will be performed and last approximately 1 2 hours. Upon waking, you will notice a dressing and ice pack on your knee. If you purchased the [employer] Cold Compression unit, this will be applied to your knee. You will remain in the recovery room for 1 2 hours, then be transferred to your room in the ambulatory surgical area if you are to go home the same day of your surgery or on the orthopedic floor if you will be staying overnight. Most of Dr. Velásquez total knee patients go home the same day as surgery. This depends on how well you feel. Patients generally seem to feel better in their own home environment, and the risk of exposure to bad bugs is much lower. (Your post-operative medications will be sent to your pharmacy approximately 1-2 days prior to your procedure) Day 1 post-op (if you have an overnight stay in the hospital) You will have bloodwork drawn in the morning Physical therapy will evaluate you in the morning. You will start getting out of bed and ambulating with a walker. They will instruct you on knee motion exercises. Use your cold packs or your cold compression unit as instructed. This will decrease swelling and minimize pain. volunteer services supervisor will discuss your discharge plan. Discharge will generally be around 11am Day 1 post-op (all patients) You will be taking Aspirin 81mg twice for 4 weeks to decrease the risk of a blood clot. You will most likely have a drain and TORIE (superficial wound VAC) dressing post-operatively covered by an elver wrap dressing. (home nurse will remove elver wrap/drain) This will keep your incision dry as well as aid in early healing. The batteries will wear out and the VAC will lose suction around day 6 7 post-op. At that time, you may turn off the device and disconnect it from your dressing. You may remove your dressing 10 days after surgery if it becomes bothersome and irritating to your skin. If the dressing appears to be saturated, please call our office. Day 2-14 post-op You will have a home nurse visit to assess your status and remove your elver wrap/drain on post-op day 2. You are permitted to shower immediately with the VAC. Do not soak the dressing let the shower flow on your opposite side, and pat dry the plastic. Once the dressing has been removed, you may shower normally with the incision exposed. Do not rub the area simply let soapy water run over the incision and lightly pat dry. Therapy will begin on post-op day 3. Your therapy prescription will be sent to your home therapy company/therapist You should continue doing your home exercises Week 2 post-op and forward You will have your first post-op appointment 2 weeks after surgery which should have been scheduled for you by our office. This appointment will be to check your incision, progression of therapy and pain control. You will continue to use a cane or a walker until you feel safe enough to stop using it. You will have a 6-week post-op appointment which should have been scheduled for you by our office. X-rays will be taken to evaluate the prosthesis. You will continue to advance range of motion. By 3 to 4 months after surgery, you should have almost full range of motion and may resume most activities. You may have some pain around the knee with certain activities this is completely normal. You will be scheduled for a 1-year post-op appointment to assess your outcome (sooner if Dr. Banks feels it is necessary). Pain: The immediate post-op period after knee replacement surgery can be painful. You should take your pain medicine as you need it, especially prior to physical therapy and bedtime. Your pain WILL get better, and you may transition to a milder pain medicine (with less side effects, such as Tylenol) as soon as possible. It is common to have pain at night that interferes with sleep this can last for several months. Pain medicines can cause nausea and constipation do not take more than you need. You may be prescribed one or more of the following MEDICATIONS : 1. Celebrex this controls inflammation and makes pain medications more effective it will be taken once or twice a day 2. Tylenol a pain medicine that can help to decrease your pain you should take 1000mg three times a day 3. Tramadol a pain medicine that can be taken every 4-6 hours (instead of Oxycodone) as needed to control your pain 4. Oxycodone a VERY strong pain medicine that can be taken every 4- 6 hours (instead of Tramadol) as needed to control your pain. This medication has the most side effects. 5. Aspirin 81mg blood thinning medication to help minimize the risk of development of blood clots unfortunate side effects of pain medicine include nausea and constipation if you experience these issues or have any questions about your post-op medications, call [facility] at for assistance/advice on how to manage these issues Physical therapy is a VERY important part of knee replacement surgery. The office will arrange for a therapist to come to your home to instruct you on exercises. It is very important to practice on your own (or with the assistance of a family member). While in the hospital, you will be shown a series of home exercises you should perform these exercises 3 4 times daily in addition to physical therapy. After the completion of home therapy (approx. 2 weeks), most therapy exercises can be done on your own. You should get up to walk several times a day. Try not to stand longer than 1 hour at a time to minimize swelling. If you develop swelling, you need to elevate your legs/feet at or above the level of your heart. You may progress from walker to cane to ambulating independently as you feel comfortable. Unless it is an emergency, YOU ARE NOT PERMITTED TO HAVE ANY DENTAL CLEANING/WORK UNTIL 3 MONTHS AFTER SURGERY. You will be required to take an antibiotic prior to any dental cleaning or dental work in order to prevent your joint prothesis from getting infected. This medication is a one time per visit dose to be taken one hour prior to appointment. You may call our office for this prescription or your dentist may be willing to prescribe the medication. Remember to contact [facility] at if you develop any signs of infection which include increased swelling, pain, redness, drainage from incision, warmth, fever, chills or severe pain unrelieved by pain medication. If you develop any chest pain or shortness of breath, you should proceed immediately to the closest Emergency Room. It is normal to run a low-grade fever after surgery. If your fever is consistent at 101.0 or higher, you will need to contact the office. Stand-Alone Forms: My [facility], Pain - Opioid Pain Management Medications and DC Order Prescriptions: Continued diphenhydramine HCl [ZzzQuil] 25 mg Capsule 25 mg PO HS PRN (Reason: Sleep) PreserVision AREDS-2 250-90-40-1 mg Capsule 1 tab PO QAM amlodipine 10 mg tablet 10 mg PO PM hydrochlorothiazide 25 mg tablet 25 mg PO QAM lisinopril 40 mg tablet 40 mg PO QAM Held aspirin 81 mg tablet,delayed release (DR/EC) 81 mg PO QAM Hold Instructions: You will be taking your aspirin twice daily for 4 weeks. Resume your 1 tablet daily when that is completed. Discontinued naproxen sodium [Aleve] 220 mg capsule 220 mg PO BID PRN (Reason: Pain) Discharge Orders: Discharge Order (Routine); Ordered 01/31/24 Ordered By: Selvin Banks Admission Data Admit Date/Time: 01/30/24 12:43 Attending Provider: Selvin Banks Admit Provider: Selvin Banks Primary Care Provider: Anna Marie Gan Other Providers: [facility] Other Interventions: Discharge Summary Assessment (RN) Last Done: 01/31/24 09:51
== END 2024-01-31 10:57 | disposition home health service (06) | DRG 467 ==
LOC: ASU 07:06 → 3E 12:43
DX: T84.062A Wear of articular bearing surface of internal prosthetic right knee joint, initial encounter; Z96.651 Presence of right artificial knee joint; Y92.89 Other specified places as the place of occurrence of the external cause; I10 Essential (primary) hypertension; Z87.891 Personal history of nicotine dependence; Y79.2 Prosthetic and other implants, materials and accessory orthopedic devices associated with adverse incidents; Z83.3 Family history of diabetes mellitus; M17.11 Unilateral primary osteoarthritis, right knee; Z79.82 Long term (current) use of aspirin; Z96.642 Presence of left artificial hip joint